=== PATIENT | male | born 1930 | race Caucasian/White ===

== ENCOUNTER 2018-11-18 10:54 | Emergency (ER) | payer MEDICARE ==
[2018-11-18 11:07] VITALS: BP 135/75; PULSE 58; RESP 18; TEMP 98.2
[2018-11-18] MEDS ORDERED: KETOROLAC 60 MG/2 ML VIAL IVP STA (11:47)
--- NOTE | 2018-11-18 11:50 | ED ---
General Adult HPI - General Chief complaint: Fall Stated complaint: fall Time Seen by Provider: 11/18/18 11:00 Source: patient, EMS, RN notes reviewed Mode of arrival: EMS Limitations: no limitations - History of Present Illness Initial comments: This is an 88-year-old male who presents to the emergency department complaining of bilateral hip pain and some left thoracic pain. Patient states last night he felt the ground and twisted and was unable to get up so he sat there until this morning when he was able to get some help. Patient states he crawled over to a carpeted and spent the night there. Patient states he did not hit his head he did not have any neck pain. Patient denies chest pain. Patient denies any arm pain patient denies any lower extremity pain except for the hips. Patient denies any pelvic pain. - Related Data Home Medications Medication Instructions Recorded Confirmed Brimonidine Tartrate [Alphagan P 1 drop BOTH EYES BID 05/24/16 11/18/18 0.15% Ophth Soln] Latanoprost Ophth [Xalatan 0.005%] 1 drop LEFT EYE HS 05/24/16 11/18/18 Timolol 0.5% Ophth Gel Forming 1 drops LEFT EYE BID 05/24/16 11/18/18 [Timoptic-Xe 0.5% Gel Form] Triamterene-Hctz 37.5-25Mg 1 cap PO DAILY 05/24/16 11/18/18 [Dyazide 37.5-25 Capsule] Dabigatran [Pradaxa] 75 mg PO BID 11/18/18 11/18/18 Multivitamins, Thera [Multivitamin 1 tab PO DAILY 11/18/18 11/18/18 (formulary)] amLODIPine/ATORVASTATIN 1 tab PO DAILY 11/18/18 11/18/18 [amLODIPine/ATORVASTATIN 10-20 MG] glyBURIDE/METFORMIN HCL 1 tab PO BID 11/18/18 11/18/18 [Glucovance 5-500 mg] Allergies Allergy/AdvReac Type Severity Reaction Status Date / Time Penicillins Allergy Severe seizures Verified 11/18/18 11:13 Review of Systems ROS Statement: Those systems with pertinent positive or pertinent negative responses have been documented in the HPI. ROS Other: All systems not noted in ROS Statement are negative. Past Medical History Past Medical History: Diabetes Mellitus, Osteoarthritis (OA), Sleep Apnea/CPAP/BIPAP Additional Past Medical History / Comment(s): see Dr Valladares H&P, constipation, pre cancer skin "spots", varicose veins History of Any Multi-Drug Resistant Organisms: None Reported Past Surgical History: Appendectomy, Cholecystectomy, Joint Replacement, Orthopedic Surgery, Pacemaker Additional Past Surgical History / Comment(s): jean-paul cataracts, rt shoulder surgery,jean-paul bunionectomy, heel spur left foot, Past Anesthesia/Blood Transfusion Reactions: No Reported Reaction Past Psychological History: No Psychological Hx Reported Smoking Status: Former smoker Past Alcohol Use History: None Reported Past Drug Use History: None Reported - Past Family History Father Family Medical History: Cancer Mother Family Medical History: Cancer Sister(s) Family Medical History: Cancer General Exam - General Exam Comments Initial Comments: GENERAL: Patient is well-developed and well-nourished. Patient is nontoxic and well- hydrated and is in mild distress. ENT: Neck is soft and supple. No significant lymphadenopathy is noted. Oropharynx is clear. Moist mucous membranes. Neck has full range of motion without eliciting any pain. EYES: The sclera were anicteric and conjunctiva were pink and moist. Extraocular movements were intact and pupils were equal round and reactive to light. Eyelids were unremarkable. PULMONARY: Unlabored respirations. Good breath sounds bilaterally. No audible rales rhonchi or wheezing was noted. CARDIOVASCULAR: There is a regular rate and rhythm without any murmurs gallops or rubs. ABDOMEN: Soft and nontender with normal bowel sounds. No palpable organomegaly was noted. There is no palpable pulsatile mass. SKIN: Skin is clear with no lesions or rashes and otherwise unremarkable. NEUROLOGIC: Patient is alert and oriented x3. Cranial nerves II through XII are grossly intact. Motor and sensory are also intact. Normal speech, volume and content. Symmetrical smile. MUSCULOSKELETAL: Patient has bilateral lateral tenderness to both hips has full range of motion of the hips however it hurts actually rotate either of them. Patient has some tenderness just medial to the left scapula. No signs of trauma that area. Patient has no upper extremity pain or clavicle pain no chest wall pain LYMPHATICS: No significant lymphadenopathy is noted PSYCHIATRIC: Normal psychiatric evaluation. Limitations: no limitations Course Vital Signs 11/18/18 11:01 Temperature 98.2 F Pulse Rate 58 L Respiratory 18 Rate Blood Pressure 135/75 O2 Sat by Pulse 97 Oximetry Medical Decision Making - Medical Decision Making X-ray of the hips show no acute abnormality. Chest x-ray shows no acute abnormality. Patient was able to ambulate and stated that he was at his baseline as far as walking goes. Disposition Clinical Impression: Fall, Hip pain Disposition: HOME SELF-CARE Condition: Good Instructions (If sedation given, give patient instructions): Fall Prevention for Older Adults (ED) Is patient prescribed a controlled substance at d/c from ED?: No Referrals: Ervin Gomez MD [Primary Care Provider] - 1-2 days Time of Disposition: 13:50
--- NOTE | 2018-11-18 12:46 | XR ---
EXAMINATION TYPE: XR Hip Bilateral and AP pelvis DATE OF EXAM: 11/18/2018 COMPARISON: NONE HISTORY: Pelvic and bilateral hip pain after fall injury last night. TECHNIQUE: A single AP view of the pelvis is obtained. Two views of the bilateral hips are obtained. FINDINGS: Lucency from gas prominent rectum makes evaluation near pubic symphysis suboptimal. No defi nitive pelvic fracture is seen. Sacroiliac joints are maintained. Pubic symphysis is not suspiciously widened. Two views of bilateral hips show no acute fracture or dislocation. Mild to moderate axial joint space loss and acetabular spurring in both hips is seen. No focal lytic or sclerotic lesion seen in the pr oximal femurs bilaterally. Left-sided pelvic phleboliths are noted. IMPRESSION: There is no acute fracture or dislocation in the pelvis or either hip.
--- NOTE | 2018-11-18 12:47 | XR ---
EXAMINATION TYPE: XR chest 2V DATE OF EXAM: 11/18/2018 COMPARISON: Prior chest x-ray 05/29/2016 HISTORY: Difficulty breathing, pain, fall TECHNIQUE: Frontal and lateral views of the chest are obtained. FINDINGS: There is no focal air space opacity, pleural effusion, or pneumothorax seen. The cardiac silhouette size is stable and enlarged although may be accentuated by rotation. There is increased A P diameter chest with flattening the hemidiaphragms. Anterior osteophyte formation along the thoracic spine suggest diffuse idiopathic skeletal hyperostosis. Patient is rotated. Prominence of pulmonary artery could be due to pulmonary artery hypertension. There is pacemaker generator in the left pector al region, lead is present right ventricle. The osseous structures are intact. IMPRESSION: No acute cardiopulmonary process. Additional findings above.
== END 2018-11-18 14:02 | disposition home or self-care (01) ==
LOC: EC 10:54
DX: M25.551 Pain in right hip (principal); M25.552 Pain in left hip; M54.6 Pain in thoracic spine; E11.9 Type 2 diabetes mellitus without complications; M19.90 Unspecified osteoarthritis, unspecified site; G47.30 Sleep apnea, unspecified; Z96.698 Presence of other orthopedic joint implants; Z95.0 Presence of cardiac pacemaker; Z87.891 Personal history of nicotine dependence; Z79.84 Long term (current) use of oral hypoglycemic drugs; Z79.899 Other long term (current) drug therapy; Z88.0 Allergy status to penicillin; X50.1XXA Overexertion from prolonged static or awkward postures, initial encounter
CPT/HCPCS: 73521; 71046; 99283; 96374; J1885

== ENCOUNTER 2018-12-20 08:13 | Inpatient (IN) | payer MEDICARE ==
[2018-12-20] MEDS ORDERED: SODIUM CHLORIDE 0.9% 500 ML 500 ML IV STA (08:35)
[2018-12-20] MEDS ORDERED: MORPHINE SULFATE 2 MG/ML SYRINGE IVP STA (08:35)
[2018-12-20] MEDS ORDERED: ONDANSETRON 4 MG/2 ML VIAL IVP STA (08:35)
--- NOTE | 2018-12-20 08:43 | ED ---
General Adult HPI - General Source: patient, family Mode of arrival: wheelchair Limitations: no limitations <Kendra Smallwood - Last Filed: 12/20/18 10:00> <Davi Medrano - Last Filed: 12/20/18 10:13> - General Chief complaint: Abdominal Pain Stated complaint: constipation Time Seen by Provider: 12/20/18 08:22 - History of Present Illness Initial comments: 88-year-old male patient presents to the emergency department today for evaluation of rectal bleeding, urinary retention, and constipation. Patient states that his last bowel movement was 2-3 days ago. Patient states he has the urge to defecate however is unable to pass stool. Patient states that he has been having some bright red rectal bleeding over the last 24 hours. States that the bleeding is becoming heavier. States he is having rectal pain with this. Patient states he is also having urinary retention. States he last urinated yesterday. He denies any nausea or vomiting. States he does feel a lot of lower abdominal pressure. Patient has had cholecystectomy and appendectomy in the past. States he does have a history of hemorrhoids. Heh does take Pradaxa. He has been taking MiraLAX without relief. Denies any other stool softeners, laxatives, or enemas. Patient denies any recent rash, fever, chills, shortness breath, chest pain, back pain, numbness, tingling, dizziness, weakness, hematuria, dysuria, urinary urgency, urinary frequency, headache, visual changes, or any other complaints. (Kendra Smallwood) - Related Data Home Medications Medication Instructions Recorded Confirmed Brimonidine Tartrate [Alphagan P 1 drop BOTH EYES BID 05/24/16 12/20/18 0.15% Ophth Soln] Timolol 0.5% Ophth Gel Forming 1 drops LEFT EYE DAILY 05/24/16 12/20/18 [Timoptic-Xe 0.5% Gel Form] Triamterene-Hctz 37.5-25Mg 1 cap PO DAILY 05/24/16 12/20/18 [Dyazide 37.5-25 Capsule] Dabigatran [Pradaxa] 75 mg PO BID 11/18/18 12/20/18 amLODIPine/ATORVASTATIN 1 tab PO DAILY 11/18/18 12/20/18 [amLODIPine/ATORVASTATIN 10-20 MG] glyBURIDE/METFORMIN HCL 1 tab PO BID 11/18/18 12/20/18 [Glucovance 5-500 mg] Allergies Allergy/AdvReac Type Severity Reaction Status Date / Time Penicillins AdvReac Severe seizures Verified 12/20/18 09:12 Review of Systems ROS Other: All systems not noted in ROS Statement are negative. <Kendra Smallwood - Last Filed: 12/20/18 10:00> ROS Other: All systems not noted in ROS Statement are negative. <Davi Medrano - Last Filed: 12/20/18 10:13> ROS Statement: Those systems with pertinent positive or pertinent negative responses have been documented in the HPI. Past Medical History Past Medical History: Diabetes Mellitus, Osteoarthritis (OA), Sleep Apnea/CPAP/BIPAP Additional Past Medical History / Comment(s): see Dr Valladares H&P, constipation, pre cancer skin "spots", varicose veins History of Any Multi-Drug Resistant Organisms: None Reported Past Surgical History: Appendectomy, Cholecystectomy, Joint Replacement, Orthopedic Surgery, Pacemaker Additional Past Surgical History / Comment(s): jean-paul cataracts, rt shoulder surgery,jean-paul bunionectomy, heel spur left foot, Past Anesthesia/Blood Transfusion Reactions: No Reported Reaction Past Psychological History: No Psychological Hx Reported Smoking Status: Former smoker Past Alcohol Use History: None Reported Past Drug Use History: None Reported - Past Family History Father Family Medical History: Cancer Mother Family Medical History: Cancer Sister(s) Family Medical History: Cancer <Kendra Smallwood - Last Filed: 12/20/18 10:00> General Exam Limitations: no limitations General appearance: alert, in no apparent distress, other (Physical well- developed, well-nourished elderly male patient in no acute distress. Vital signs upon presentation are temperature 97.2F, pulse 67, respirations 18, blood pressure 159/84, pulse ox 96% on room air.) Eye exam: Present: normal appearance, PERRL, EOMI. Absent: scleral icterus, conjunctival injection, periorbital swelling ENT exam: Present: normal exam, normal oropharynx, mucous membranes moist Respiratory exam: Present: normal lung sounds bilaterally. Absent: respiratory distress, wheezes, rales, rhonchi, stridor Cardiovascular Exam: Present: regular rate, normal rhythm, normal heart sounds. Absent: systolic murmur, diastolic murmur, rubs, gallop, clicks GI/Abdominal exam: Present: soft, tenderness (Suprapubic tenderness), normal bowel sounds. Absent: distended, guarding, rebound, rigid Rectal exam: Present: bloody stool, tenderness. Absent: hemorrhoids Neurological exam: Present: alert, oriented X3, CN II-XII intact Psychiatric exam: Present: normal affect, normal mood Skin exam: Present: warm, dry, intact, normal color. Absent: rash <Kendra Smallwood - Last Filed: 12/20/18 10:00> Course <Davi Medrano - Last Filed: 12/20/18 10:13> Vital Signs 12/20/18 12/20/18 08:16 09:11 Temperature 97.2 F L Pulse Rate 67 57 L Respiratory 18 18 Rate Blood Pressure 159/84 132/74 O2 Sat by Pulse 96 96 Oximetry - Reevaluation(s) Reevaluation #1: 12/20/18 10:13NP supervision: I proceeded [id number] evaluation patient did discuss the findings with him. He does demonstrate evidence of GI bleed with burgundy colored stools. Hemoglobin is within normal limits this time he will be admitted for monitoring and evaluation by GI. I do agree with the assessment and plan (Davi Medrano) EKG Findings - EKG Comments: EKG Findings:: EKG obtained at 0910 shows demand pacemaker. Ventricular rate is 53, QRS duration 86, QTC 418, QTC 392. <Kendra Smallwood - Last Filed: 12/20/18 10:00> Medical Decision Making - Lab Data Result diagrams: 12/20/18 08:55 12/20/18 08:55 - Radiology Data Radiology results: report reviewed, image reviewed <Kendra Smallwood - Last Filed: 12/20/18 10:00> - Lab Data Result diagrams: 12/20/18 08:55 12/20/18 08:55 <Davi Medrano - Last Filed: 12/20/18 10:13> - Medical Decision Making 88-year-old male patient presented to the emergency department today for evaluation of constipation, urinary retention, GI bleed. Physical examination did reveal suprapubic abdominal pressure and tenderness. Lungs are clear to auscultation with good air movement. Heart sounds normal. Rectal exam was performed and revealed some mild rectal tenderness. There is presence of maroon stool, obvious bleeding. No hemorrhoids were noted externally. Blood pressure is stable. X-ray shows overall nonobstructive bowel gas pattern. There is fecal material seen but no evidence of severe constipation. We did do a straight cath, this did relieve bladder pressure. Patient is given some pain medication which did improve his symptoms significantly. By attending Dr. Medrano did discuss the case with the on-call physician Dr. Delgado agrees to admission. We'll consult GI. I did discuss findings and results with the patient. He is agreeable with the plan. (Kendra Smallwood) - Lab Data Lab Results 12/20/18 12/20/18 12/20/18 Range/Units 08:55 08:55 08:55 WBC 9.2 (3.8-10.6) k/uL RBC 4.79 (4.30-5.90) m/uL Hgb 15.1 (13.0-17.5) gm/dL Hct 44.3 (39.0-53.0) % MCV 92.4 (80.0-100.0) fL MCH 31.5 (25.0-35.0) pg MCHC 34.1 (31.0-37.0) g/dL RDW 14.5 (11.5-15.5) % Plt Count 112 L (150-450) k/uL Neutrophils % 71 % Lymphocytes % 19 % Monocytes % 6 % Eosinophils % 3 % Basophils % 1 % Neutrophils # 6.5 (1.3-7.7) k/uL Lymphocytes # 1.7 (1.0-4.8) k/uL Monocytes # 0.5 (0-1.0) k/uL Eosinophils # 0.3 (0-0.7) k/uL Basophils # 0.1 (0-0.2) k/uL PT 11.2 (9.0-12.0) sec INR 1.1 (<1.2) APTT 30.9 H (22.0-30.0) sec Sodium 140 (137-145) mmol/L Potassium 3.9 (3.5-5.1) mmol/L Chloride 106 (98-107) mmol/L Carbon Dioxide 24 (22-30) mmol/L Anion Gap 10 mmol/L BUN 16 (9-20) mg/dL Creatinine 0.82 (0.66-1.25) mg/dL Est GFR (CKD-EPI)AfAm >90 (>60 ml/min/1.73 sqM) Est GFR (CKD-EPI)NonAf 80 (>60 ml/min/1.73 sqM) Glucose 139 H (74-99) mg/dL Calcium 9.5 (8.4-10.2) mg/dL Total Bilirubin 1.5 H (0.2-1.3) mg/dL AST 18 (17-59) U/L ALT 22 (21-72) U/L Alkaline Phosphatase 79 (38-126) U/L Total Protein 6.3 (6.3-8.2) g/dL Albumin 3.9 (3.5-5.0) g/dL Amylase 52 (30-110) U/L Lipase 64 (23-300) U/L - Radiology Data KUB x-ray of the abdomen is obtained. Report reviewed in its entirety. Impression by Dr. Villafana shows overall mild obstructive bowel gas pattern. (Kendra Smallwood) Disposition Decision to Admit Reason: Admit from EC Decision Date: 12/20/18 Decision Time: 10:07 <Kendra Smallwood - Last Filed: 12/20/18 10:00> <Davi Medrano - Last Filed: 12/20/18 10:13> Clinical Impression: GI bleed, Urinary retention Disposition: ADMITTED IP TO THIS [facility] Condition: Serious Referrals: Ervin Gomez MD [Primary Care Provider] - 1-2 days
[2018-12-20 09:20] LABS: Basophils # (A) 0.1 k/uL (0-0.2); Basophils % (A) 1 %; Eosinophils # (A) 0.3 k/uL (0-0.7); Eosinophils % (A) 3 %; HCT 44.3 % (39.0-53.0); HGB 15.1 gm/dL (13.0-17.5); Lymphocytes # (A) 1.7 k/uL (1.0-4.8); Lymphocytes % (A) 19 %; MCH 31.5 pg (25.0-35.0); MCHC 34.1 g/dL (31.0-37.0); MCV 92.4 fL (80.0-100.0); Mean Platelet Volume 8.1; Monocytes # (A) 0.5 k/uL (0-1.0); Monocytes % (A) 6 %; Neutrophils # (A) 6.5 k/uL (1.3-7.7); Neutrophils % (A) 71 %; Platelet Count 112 k/uL (150-450); RBC 4.79 m/uL (4.30-5.90); RDW 14.5 % (11.5-15.5); WBC 9.2 k/uL (3.8-10.6)
[2018-12-20 09:33] LABS: ALT 22 U/L (21-72); AST 18 U/L (17-59); African American GFR (CKD) >90 (>60 ml/min/1.73 sqM); Albumin 3.9 g/dL (3.5-5.0); Alkaline Phosphatase 79 U/L (38-126); Amylase 52 U/L (30-110); Anion Gap 10 mmol/L; Blood Urea Nitrogen 16 mg/dL (9-20); Calcium 9.5 mg/dL (8.4-10.2); Carbon Dioxide 24 mmol/L (22-30); Chloride 106 mmol/L (98-107); Glucose 139 mg/dL (74-99); Lipase 64 U/L (23-300); Potassium 3.9 mmol/L (3.5-5.1); Sodium 140 mmol/L (137-145); Total Bilirubin 1.5 mg/dL (0.2-1.3); Total Protein 6.3 g/dL (6.3-8.2)
--- NOTE | 2018-12-20 09:44 | XR ---
EXAMINATION TYPE: XR KUB DATE OF EXAM: 12/20/2018 9:41 AM CLINICAL HISTORY: Abdominal pain. TECHNIQUE: Two Upright KUB images of the abdomen are obtained. COMPARISON: None. FINDINGS: Scattered gas is seen in non-distended stomach and small bowel loops. Gas and fecal materia l is seen in non-distended colon. There is no visceromegaly, pneumoperitoneum, or abnormal calcificat ion appreciated. Underlying scoliosis is present. Vascular consultation of aorta is seen. Moderate na rrowing of both hip joints. Lung bases are clear. IMPRESSION: Overall nonobstructive bowel gas pattern.
[2018-12-20 09:47] LABS: INR 1.1 (<1.2); Partial Thromboplastin Time 30.9 sec (22.0-30.0); Prothrombin Time 11.2 sec (9.0-12.0)
[2018-12-20] MEDS ORDERED: NALOXONE 0.4 MG/ML 1 ML VIAL IV PRN (09:56)
[2018-12-20] MEDS ORDERED: ONDANSETRON 4 MG/2 ML VIAL IVP PRN (09:56)
[2018-12-20 10:18] LABS: Appearance,Urine Clear (Clear); Bilirubin,Urine Negative (Negative); Blood,Urine Negative (Negative); Color,Urine Yellow; Glucose,Urine (UA) Negative (Negative); Ketones,Urine Negative (Negative); Leukocyte Esterase,Urine Negative (Negative); Nitrite,Urine Negative (Negative); Protein,Urine Negative (Negative); Specific Gravity,Urine 1.014 (1.001-1.035)
[2018-12-20] MEDS: MORPHINE SULFATE 2 MG/ML SYRINGE IV PRN (14:00)
[2018-12-20 15:22] LABS: Basophils % (A) 1 %; Eosinophils # (A) 0.2 k/uL (0-0.7); Eosinophils % (A) 2 %; HCT 43.9 % (39.0-53.0); HGB 14.6 gm/dL (13.0-17.5); Lymphocytes # (A) 1.7 k/uL (1.0-4.8); Lymphocytes % (A) 20 %; MCH 30.8 pg (25.0-35.0); MCHC 33.2 g/dL (31.0-37.0); MCV 92.6 fL (80.0-100.0); Mean Platelet Volume 8.9; Monocytes # (A) 0.6 k/uL (0-1.0); Monocytes % (A) 7 %; Neutrophils # (A) 5.9 k/uL (1.3-7.7); Neutrophils % (A) 69 %; Platelet Count 103 k/uL (150-450); RBC 4.74 m/uL (4.30-5.90); RDW 15.9 % (11.5-15.5); WBC 8.6 k/uL (3.8-10.6)
[2018-12-20 16:51] LABS: Glucose,Whole Blood 111 mg/dL (75-99)
[2018-12-20 20:09] LABS: Glucose,Whole Blood 132 mg/dL (75-99)
[2018-12-20] MEDS: metFORMIN 500 MG TAB PO SCH (20:54)
[2018-12-20] MEDS: BRIMONIDINE TARTRATE 0.2% DROPS 5 ML BTL BOTH EYES SCH (20:54)
[2018-12-20] MEDS: TIMOLOL 0.5% OPHTH DROPS 5 ML BTL LEFT EYE SCH (20:54)
[2018-12-20] MEDS ORDERED: GLYBURIDE PO SCH (21:00)
[2018-12-20] MEDS ORDERED: METFORMIN HCL PO SCH (21:00)
[2018-12-20 21:20] LABS: Basophils % (A) 1 %; Eosinophils # (A) 0.2 k/uL (0-0.7); Eosinophils % (A) 3 %; HCT 42.4 % (39.0-53.0); HGB 14.3 gm/dL (13.0-17.5); Lymphocytes # (A) 2.1 k/uL (1.0-4.8); Lymphocytes % (A) 25 %; MCH 30.7 pg (25.0-35.0); MCHC 33.6 g/dL (31.0-37.0); MCV 91.4 fL (80.0-100.0); Mean Platelet Volume 9.1; Monocytes # (A) 0.6 k/uL (0-1.0); Monocytes % (A) 7 %; Neutrophils # (A) 5.5 k/uL (1.3-7.7); Neutrophils % (A) 63 %; Platelet Count 105 k/uL (150-450); RBC 4.64 m/uL (4.30-5.90); RDW 15.3 % (11.5-15.5); WBC 8.6 k/uL (3.8-10.6)
[2018-12-20] MEDS: glipiZIDE 5 MG TAB PO SCH (22:34)
--- NOTE | 2018-12-20 23:22 | P.HPIM ---
History of Present Illness H&P Date: 12/20/18 Chief Complaint: Bleeding per rectum History of presenting complaint: This is a very pleasant [address] Gomez. Chronic stable medical conditions include atrial fibrillation, diabetes, hypertension, osteoarthritis, varicose veins, permanent pacemaker. Patient presents with multitudinous symptoms. Patient for last 2 days not able to have a bowel movement. Also n oticed right shoulder red blood per rectum for 1 day. Patient also not able to make any urine for last 1 day. Patient does feel a suprapubic fullness and tenderness. No nausea vomiting. No fever or chills. Admitted through the ER. Review of systems: GEN.: None EYES: None HEENT: Decreased hearing NECK: None RESPIRATORY: None CARDIOVASCULAR: None GASTROINTESTINAL: As above GENITOURINARY: As above MUSCULOSKELETAL: None LYMPHATICS: None HEMATOLOGICAL: None PSYCHIATRY: None NEUROLOGICAL: None ( Past medical history: Atrial fibrillation, remote stroke, diabetes, hypertension, osteoarthritis, sleep apnea in the past on anymore, varicose veins Social history: Does not smoke or drink alcohol. Retired. Lives alone. Family history: Cancer Physical examination: VITAL SIGNS: 97.2, 67, 18, 159/84, 96% room air GENERAL: BMI 30.2, laying in bed, not in distress. EYES: Pupils equal. Conjunctiva normal. HEENT: External appearance of nose and ears normal, oral cavity grossly normal. NECK: JVD not raised; masses not palpable. HEART: First and second heart sounds are normal; no edema. LUNGS: Respiratory rate normal; clear to auscultation. ABDOMEN: Soft, some suprapubic tenderness, no guarding or rigidity liver spleen not palpable, no masses palpable. Rectal exam deferred. PSYCH: Alert and oriented x3; mood and affect normal. NEUROLOGICAL: Cranial nerves grossly intact; no facial asymmetry, power and sensation grossly intact. LYMPHATICS: No lymph nodes palpable in the axilla and neck Investigations, reviewed in the clinical context: White count 9.2 hemoglobin 15.1 potassium 3.9 creatinine 0.82 UA negative KUB-nonspecific EKG tracing personally reviewed by me shows underlying atrial fibrillation with a paced rhythm Assessment: -This is a patient presents with 2 days of no bowel movement. Also not able to urinate with urinary retention for 1 day. Also bright red blood per rectum 1 day. GI is consulted with a view to endoscopy. That'll be suspicion of a mass in the lower GI tract.. Patient be made nothing by mouth. -Persistent atrial fibrillation -Permanent pacemaker -Diabetes mellitus type 2 -Hypertension -Primary osteoarthritis -Plan: Home medications resumed. Patient will be made nothing by mouth. GI was consul colin. Care was discussed with the patient. We'll also BladderScan the patient. And do straight catheterization. Past Medical History Past Medical History: Atrial Fibrillation, CVA/TIA, Diabetes Mellitus, Hypertension, Osteoarthritis (OA), Pneumonia, Sleep Apnea/CPAP/BIPAP Additional Past Medical History / Comment(s): see Dr Valladares H&P, constipation, pre cancer skin "spots", varicose veins History of Any Multi-Drug Resistant Organisms: None Reported Past Surgical History: Appendectomy, Cholecystectomy, Joint Replacement, Orthopedic Surgery, Pacemaker Additional Past Surgical History / Comment(s): jean-paul cataracts, rt shoulder surgery,jean-paul bunionectomy, heel spur left foot, Deviated septum, hemmrhoidectomy Past Anesthesia/Blood Transfusion Reactions: No Reported Reaction Type of Cardiac Device: Permanent Pacemaker Device Placement Date:: 2016, on demand pacer set to go off if HR goes less than 50. Past Psychological History: No Psychological Hx Reported Smoking Status: Former smoker Past Alcohol Use History: None Reported Additional Past Alcohol Use History / Comment(s): quit smoking 1967, smoked for 4-5 yrs ,2 PPD Past Drug Use History: None Reported - Past Family History Father Family Medical History: Cancer Mother Family Medical History: Cancer Sister(s) Family Medical History: Cancer Medications and Allergies Home Medications Medication Instructions Recorded Confirmed Type Brimonidine Tartrate [Alphagan P 1 drop BOTH EYES BID 05/24/16 12/20/18 History 0.15% Ophth Soln] Timolol 0.5% Ophth Gel Forming 1 drops LEFT EYE DAILY 05/24/16 12/20/18 History [Timoptic-Xe 0.5% Gel Form] Triamterene-Hctz 37.5-25Mg 1 cap PO DAILY 05/24/16 12/20/18 History [Dyazide 37.5-25 Capsule] Dabigatran [Pradaxa] 75 mg PO BID 11/18/18 12/20/18 History amLODIPine/ATORVASTATIN 1 tab PO DAILY 11/18/18 12/20/18 History [amLODIPine/ATORVASTATIN 10-20 MG] glyBURIDE/METFORMIN HCL 1 tab PO BID 11/18/18 12/20/18 History [Glucovance 5-500 mg] Allergies Allergy/AdvReac Type Severity Reaction Status Date / Time Penicillins AdvReac Severe seizures Verified 12/20/18 09:12 Physical Exam Vitals: Vital Signs Temp Pulse Pulse Resp BP BP Pulse Ox 12/20/18 15:02 52 L 18 140/74 95 12/20/18 15:00 98 F 52 L 14 167/86 97 12/20/18 14:03 54 L 18 132/68 98 12/20/18 10:44 55 L 18 129/73 97 12/20/18 09:11 57 L 18 132/74 96 12/20/18 08:16 97.2 F L 67 18 159/84 96 Intake and Output 12/20/18 12/20/18 12/21/18 14:59 22:59 06:59 Intake Total 180 Output Total 850 700 Balance -850 -520 Intake: Oral 180 Output: Urine 850 700 Straight 850 700 Other: Voiding Method Toilet Urinal Weight 106.594 kg Results CBC & Chem 7: 12/20/18 20:45 12/20/18 08:55 Labs: Abnormal Lab Results - Last 24 Hours (Table) 12/20/18 12/20/18 12/20/18 Range/Units 08:55 08:55 08:55 RDW (11.5-15.5) % Plt Count 112 L (150-450) k/uL APTT 30.9 H (22.0-30.0) sec Glucose 139 H (74-99) mg/dL POC Glucose (mg/dL) (75-99) mg/dL Total Bilirubin 1.5 H (0.2-1.3) mg/dL 12/20/18 12/20/18 12/20/18 Range/Units 14:50 16:49 20:07 RDW 15.9 H (11.5-15.5) % Plt Count 103 L (150-450) k/uL APTT (22.0-30.0) sec Glucose (74-99) mg/dL POC Glucose (mg/dL) 111 H 132 H (75-99) mg/dL Total Bilirubin (0.2-1.3) mg/dL 12/20/18 Range/Units 20:45 RDW (11.5-15.5) % Plt Count 105 L (150-450) k/uL APTT (22.0-30.0) sec Glucose (74-99) mg/dL POC Glucose (mg/dL) (75-99) mg/dL Total Bilirubin (0.2-1.3) mg/dL Thrombosis Risk Factor Assmnt - Choose All That Apply Any of the Below Risk Factors Present?: Yes Each Factor Represents 1 point: Varicose veins Each Risk Factor Represents 2 Points: Malignancy Each Risk Factor Represents 3 Points: Age 75 years or older, History of DVT/PE Thrombosis Risk Factor Assessment Total Risk Factor Score: 9 Thrombosis Risk Factor Assessment Level: High Risk
[2018-12-21] MEDS: MORPHINE SULFATE 2 MG/ML SYRINGE IV PRN ×5 (01:08→23:57)
[2018-12-21 07:28] LABS: Glucose,Whole Blood 130 mg/dL (75-99)
[2018-12-21 07:32] LABS: Basophils # (A) 0.1 k/uL (0-0.2); Basophils % (A) 1 %; Eosinophils # (A) 0.2 k/uL (0-0.7); Eosinophils % (A) 2 %; HCT 44.5 % (39.0-53.0); HGB 14.6 gm/dL (13.0-17.5); Lymphocytes # (A) 1.8 k/uL (1.0-4.8); Lymphocytes % (A) 20 %; MCH 30.8 pg (25.0-35.0); MCHC 32.9 g/dL (31.0-37.0); MCV 93.7 fL (80.0-100.0); Mean Platelet Volume 8.2; Monocytes # (A) 0.5 k/uL (0-1.0); Monocytes % (A) 6 %; Neutrophils # (A) 6.2 k/uL (1.3-7.7); Neutrophils % (A) 70 %; Platelet Count 104 k/uL (150-450); RBC 4.75 m/uL (4.30-5.90); RDW 14.4 % (11.5-15.5); WBC 8.9 k/uL (3.8-10.6)
[2018-12-21] MEDS ORDERED: AMLODIPINE PO SCH (09:00)
[2018-12-21] MEDS ORDERED: ATORVASTATIN PO SCH (09:00)
[2018-12-21] MEDS: glipiZIDE 5 MG TAB PO SCH (10:15)
[2018-12-21] MEDS: metFORMIN 500 MG TAB PO SCH (10:15)
[2018-12-21] MEDS: TIMOLOL 0.5% OPHTH DROPS 5 ML BTL LEFT EYE SCH (10:15)
[2018-12-21] MEDS: amLODIPine 10 MG TAB PO SCH (10:15)
[2018-12-21] MEDS: ATORVASTATIN 20 MG TAB PO SCH (10:15)
[2018-12-21] MEDS: BRIMONIDINE TARTRATE 0.2% DROPS 5 ML BTL BOTH EYES SCH (10:16)
--- NOTE | 2018-12-21 10:16 | CONS ---
CONSULTATION DATE OF SERVICE: 12/21/2018. REFERRING PHYSICIAN: Dr. Delgado and Dr. Ervin Gomez REASON FOR CONSULTATION: Rectal bleeding. HISTORY OF PRESENT ILLNESS: The patient is a pleasant 88-year-old white male who came to the emergency room complaining of constipation and rectal bleeding for the last 2 days duration. The patient had a very hard bowel movement for 2 days and had to straighten strain his stool and subsequently noticed significant amount of bright red blood per rectum for the last 2 days. This morning, he still feels extremely constipated and had another bowel movement which was bloody and has lower abdominal discomfort with suprapubic pain. Also complains of difficulty micturition. He never had these symptoms in the past. Denies taking any new medications recently. He has history of atrial fibrillation and has been on Pradaxa, which has been on hold for the last 2 days. Hemoglobin remains stable. Last colonoscopy was more than 10 years ago. PAST MEDICAL HISTORY: Significant for atrial fibrillation and CVA in the past on Coumadin, history of diabetes mellitus, hypertension, hyperlipidemia, sleep apnea. PAST SURGICAL HISTORY: Cholecystectomy, appendectomy, knee replacement, bilateral cataract surgery, right surgery. MEDICATIONS: At home include Alphagan, Timoptic, Dyazide, Pradaxa, Glucovance, amlodipine, atorvastatin. ALLERGIES: PENICILLIN. SOCIAL HISTORY: No smoking or alcohol use. FAMILY HISTORY: Father had some kind of cancer and brother also had some kind of cancer. REVIEW OF SYSTEMS: Cardiopulmonary: No chest pain, shortness of breath. Genitourinary: No hematuria or dysuria. Musculoskeletal: Unremarkable. Skin unremarkable. Endocrine unremarkable. Psychiatric unremarkable. Neurology unremarkable. ENT/vision unremarkable. Constitutional: No recent weight loss. No fever, chills, night sweats. PHYSICAL EXAMINATION: Blood pressure is 150/78, pulse rate 50, temperature 98.2. HEENT examination unremarkable. Conjunctivae pink. Sclerae anicteric. Oral cavity no lesions. NECK: No JVD or lymph node enlargement. CHEST: Clear to auscultation. HEART: Regular rate and rhythm. ABDOMEN: Soft. It was nontender, nondistended. Suprapubic area had mild tenderness. EXTREMITIES: No pedal edema. SKIN no rashes. NEUROLOGIC: Alert and oriented x3. No focal deficits. LABS: From today, WBC 8.9, hemoglobin 14.6, platelets are 104. Basic metabolic panel is within normal limits. BUN and creatinine are 10 and 0.8 respectively. T-bilirubin 1.5. ALT, AST, and alkaline phosphatase are within normal limits. IMPRESSION: 1. Rectal bleeding/constipation for the last 2 days duration. Patient had significant amount of lower abdominal discomfort with rectal bleeding and clots for 2 days. Hemoglobin stable at 14.6 g/dL. Last colonoscopy was more than 10 years ago. 2. History of atrial fibrillation/cerebrovascular accident on Pradaxa, currently on hold, last dose was 2 days ago. RECOMMENDATIONS: 1. I had a lengthy discussion with the patient regarding workup of rectal bleeding. Since he is quite symptomatic and last colonoscopy was more than 10 years ago, I recommended a colonoscopy at this time and patient is agreeable to it. I discussed with him risks, benefits, and complications and he is also agreeable to it. 2. We will schedule for colonoscopy tomorrow. Thank you for this consultation. Please send a copy to Dr. Gomez. ANTONIO / RACH: [phone] /
[2018-12-21 11:57] LABS: Glucose,Whole Blood 175 mg/dL (75-99)
[2018-12-21] MEDS: TRIAMTERENE-HCTZ 37.5-25MG 1 EACH CAP PO SCH (15:31)
[2018-12-21] MEDS ORDERED: PEG 3350-NA SULF,BICARB,CL/KCL 4,000 ML BOTTLE PO ONE (17:00)
[2018-12-21 17:09] LABS: Glucose,Whole Blood 76 mg/dL (75-99)
--- NOTE | 2018-12-21 22:15 | P.PN ---
Progress Note - Text Progress Note Date: 12/21/18 Chief Complaint: Bleeding per rectum History of presenting complaint: This is a very pleasant [address] Gomez. Chronic stable medical conditions include atrial fibrillation, diabetes, hypertension, osteoarthritis, varicose veins, permanent pacemaker. Patient presents with multitudinous symptoms. Patient for last 2 days not able to have a bowel movement. Also noticed bright red blood per rectum for 1 day. Patient also not able to make any urine for last 1 day. Patient does feel a suprapubic fullness and tenderness. No nausea vomiting. No fever or chills. Admitted through the ER. Today-patient had some more dull blood per rectum. Majano catheter was placed. Large volume of urine was drained. Patient due for colonoscopy tomorrow. Daughter the bedside. Patient on clear liquids. Review of systems: Was done for constitutional, cardiovascular, GI, pulmonary. relevant finding as above Current medications reviewed that included: IV fluids Physical examination: VITAL SIGNS: 98.2, 54, 16, 144/74, 92% room air GENERAL: Laying in bed, awake but tired appearing EYES: Pupils equal. Conjunctiva normal. HEENT: External appearance of nose and ears normal, oral cavity grossly normal. NECK: JVD not raised; masses not palpable. HEART: First and second heart sounds are normal; no edema. LUNGS: Respiratory rate normal; clear to auscultation. ABDOMEN: Soft, some suprapubic tenderness, no guarding or rigidity liver spleen not palpable, no masses palpable. . Majano catheter in place PSYCH: Alert and oriented x3; mood and affect normal. Investigations, reviewed in the clinical context: White count 8.19: Hemoglobin 14.6 UA negative KUB-nonspecific EKG tracing personally reviewed by me shows underlying atrial fibrillation with a paced rhythm Assessment: -This is a patient presents with 2 days of no bowel movement. Also not able to urinate with urinary retention for 1 day. Also bright red blood per rectum 1 day. Lower GI bleed again today today. Pending endoscopy -Persistent atrial fibrillation -Permanent pacemaker -Diabetes mellitus type 2 -Hypertension -Primary osteoarthritis -Acute urinary retention now has a Majano catheter in place -Plan: Remains on clear liquids. H&H followed. 4 coloscopy tomorrow. Getting progression today. Care was discussed with the patient and her daughter the bedside. Follow hemodynamics closely
[2018-12-21 22:23] LABS: Glucose,Whole Blood 117 mg/dL (75-99)
[2018-12-22 00:30] LABS: Basophils # (A) 0.1 k/uL (0-0.2); Basophils % (A) 1 %; Eosinophils # (A) 0.3 k/uL (0-0.7); Eosinophils % (A) 2 %; HCT 47.7 % (39.0-53.0); HGB 15.1 gm/dL (13.0-17.5); Lymphocytes # (A) 2.5 k/uL (1.0-4.8); Lymphocytes % (A) 21 %; MCH 30.1 pg (25.0-35.0); MCHC 31.7 g/dL (31.0-37.0); MCV 94.7 fL (80.0-100.0); Mean Platelet Volume 8.4; Monocytes # (A) 0.7 k/uL (0-1.0); Monocytes % (A) 6 %; Neutrophils # (A) 8.4 k/uL (1.3-7.7); Neutrophils % (A) 69 %; Platelet Count 102 k/uL (150-450); RBC 5.04 m/uL (4.30-5.90); RDW 14.3 % (11.5-15.5); WBC 12.1 k/uL (3.8-10.6)
[2018-12-22] MEDS: glipiZIDE 5 MG TAB PO SCH ×4 (00:34→21:21)
[2018-12-22] MEDS: SODIUM CHLORIDE 0.9% 1,000 ML IV SCH ×3 (00:34→21:20)
[2018-12-22] MEDS: TIMOLOL 0.5% OPHTH DROPS 5 ML BTL LEFT EYE SCH ×3 (00:34→21:00)
[2018-12-22] MEDS: BRIMONIDINE TARTRATE 0.2% DROPS 5 ML BTL BOTH EYES SCH ×3 (00:34→21:00)
[2018-12-22] MEDS: metFORMIN 500 MG TAB PO SCH ×3 (00:34→21:02)
[2018-12-22] MEDS: MORPHINE SULFATE 2 MG/ML SYRINGE IV PRN ×4 (06:32→19:36)
[2018-12-22 07:12] LABS: Glucose,Whole Blood 109 mg/dL (75-99)
[2018-12-22 11:46] LABS: Glucose,Whole Blood 107 mg/dL (75-99)
[2018-12-22] MEDS ORDERED: PROPOFOL 10 MG/ML 20 ML VIAL IV ONE (16:41)
[2018-12-22] MEDS ORDERED: IV FLUID CONTINUATION 1,000 ML IV ONE (16:51)
[2018-12-22] MEDS ORDERED: LIDOCAINE 2% GEL 30 ML TUBE TOPICAL PRN (16:59)
--- NOTE | 2018-12-22 17:06 | P.PCN ---
Date of Procedure: 12/22/18 Description of Procedure: BRIEF HISTORY: A 8-year-old male who presented to the hospital with complaints of constipation and rectal bleeding for 2 days. The patient reports a very hard bowel movement and subsequently noticed bright red blood per rectum for 2 days. The patient continued to feel extremely constipated and complained of some lower abdominal discomfort. The patient does have a known history of atrial fibrillation and is on Pradaxa. Last colonoscopy was more than 10 years ago. PROCEDURE PERFORMED: Aborted Colonoscopy. PREOPERATIVE DIAGNOSIS: Blood per rectum. ESTIMATED BLOOD LOSS: Minimal. IV sedation per Anesthesia. PROCEDURE: After informed consent was obtained, the patient, was brought into the endoscopy unit. IV sedation was administered by Anesthesia under continuous monitoring. Digital rectal examination was normal. Initially the Olympus CF-100 flexible video colonoscope was then inserted in the rectum, where a large amount of solid and liquid stool was seen. Some superficial ulcerations in the rectum suggestive of stercoral ulcers were noted with some minimal bleeding from the site seen. Procedure had to be aborted due to the poor prep. The patient tolerated the procedure well. IMPRESSION: Stercoral ulcers. Poor prep. RECOMMENDATIONS: Findings of this examination were discussed with the patient and his daughter. Okay to resume diet. Patient was started on a bowel regimen of MiraLAX nightly to be titrated to bowel movements. He'll also receive a tapwater enema after arriving on the floor. Lidocaine gel has been ordered to be used prior to bowel movements to lubricate. Patient can follow-up after discharge if full colonoscopy is desired.
--- NOTE | 2018-12-22 18:20 | P.PN ---
Progress Note - Text Progress Note Date: 12/22/18 Chief Complaint: Bleeding per rectum Interval history: This is a very pleasant [address] Gomez. Chronic stable medical conditions include atrial fibrillation, diabetes, hypertension, osteoarthritis, varicose veins, permanent pacemaker. Patient presents with multitudinous symptoms. Patient for last 2 days not able to have a bowel movement. Also noticed bright red blood per rectum for 1 day. Patient also not able to make any urine for last 1 day. Patient does feel a suprapubic fullness and tenderness. No nausea vomiting. No fever or chills. Admitted through the ER. Today-'s the patient earlier today. Pending colonoscopy. Daughter is at the bedside. No new issues. Tired.. Review of systems: Was done for constitutional, cardiovascular, GI, pulmonary. relevant finding as above Active Medications Amlodipine Besylate (Norvasc) 10 mg PO DAILY [facility] Last Admin: 12/21/18 10:15 Dose: 10 mg Documented by: Atorvastatin Calcium (Lipitor) 20 mg PO DAILY [facility] Last Admin: 12/21/18 10:15 Dose: 20 mg Documented by: Brimonidine Tartrate (Alphagan P 0.2% Oph Soln) 1 drops BOTH EYES BID [facility] Last Admin: 12/22/18 07:46 Dose: 1 drops Documented by: Glipizide (Glucotrol) 5 mg PO BID [facility] Last Admin: 12/22/18 15:14 Dose: Not Given Documented by: Sodium Chloride (Saline 0.9%) 1,000 mls @ 100 mls/hr IV .Q10H [facility] Last Admin: 12/22/18 15:14 Dose: Not Given Documented by: Lidocaine HCl (Xylocaine Jelly 2%) 1 applic TOPICAL BID PRN PRN Reason: Bowel movement Stop: 12/24/18 17:00 Metformin HCl (Glucophage) 500 mg PO BID [facility] Last Admin: 12/22/18 15:14 Dose: Not Given Documented by: Morphine Sulfate (Morphine Sulfate (Inj)) 2 mg IV Q4HR PRN PRN Reason: Severe Pain Last Admin: 12/22/18 15:18 Dose: 2 mg Documented by: Naloxone HCl (Narcan) 0.2 mg IV Q2M PRN PRN Reason: Opioid Reversal Ondansetron HCl (Zofran) 4 mg IVP Q8HR PRN PRN Reason: Nausea And Vomiting Polyethylene Glycol (Miralax) 17 gm PO HS [facility] Timolol Maleate (Timoptic) 1 drops LEFT EYE BID [facility] Last Admin: 12/22/18 07:47 Dose: 1 drops Documented by: Triamterene/HCTZ (Dyazide) 1 each PO DAILY [facility] Last Admin: 12/21/18 15:31 Dose: 1 each Documented by: Physical examination: VITAL SIGNS: 98.2, 58, 18, 110/60, 93% room air GENERAL: Laying in bed, awake EYES: Pupils equal. Conjunctiva normal. HEENT: External appearance of nose and ears normal, oral cavity grossly normal. NECK: JVD not raised; masses not palpable. HEART: First and second heart sounds are normal; no edema. LUNGS: Respiratory rate normal; clear to auscultation. ABDOMEN: Soft, some suprapubic tenderness, no guarding or rigidity liver spleen not palpable, no masses palpable. . Majano catheter in place PSYCH: Alert and oriented x3; mood and affect normal. Investigations, reviewed in the clinical context: Hemoglobin 15.1 EKG tracing personally reviewed by me shows underlying atrial fibrillation with a paced rhythm Assessment: -This is a patient presents with 2 days of no bowel movement. . Also bright red blood per rectum 1 day. Lower GI bleed . Pending endoscopy -Persistent atrial fibrillation -Permanent pacemaker -Diabetes mellitus type 2 -Hypertension -Primary osteoarthritis -Acute urinary retention now has a Majano catheter in place -Plan: Hemoglobin remained stable. Pending colonoscopy. No new issues.
[2018-12-22] MEDS ORDERED: POLYETHYLENE GLYCOL 3350 17 GM POWD.PACK PO SCH (21:00)
[2018-12-22 21:19] LABS: Glucose,Whole Blood 120 mg/dL (75-99)
[2018-12-22] MEDS: amLODIPine 10 MG TAB PO SCH (23:05)
[2018-12-22] MEDS: ATORVASTATIN 20 MG TAB PO SCH (23:06)
[2018-12-22] MEDS: TRIAMTERENE-HCTZ 37.5-25MG 1 EACH CAP PO SCH (23:06)
[2018-12-23] MEDS: SODIUM CHLORIDE 0.9% 1,000 ML IV SCH ×2 (03:51→14:40)
[2018-12-23 07:39] LABS: Glucose,Whole Blood 92 mg/dL (75-99)
[2018-12-23] MEDS: TIMOLOL 0.5% OPHTH DROPS 5 ML BTL LEFT EYE SCH ×3 (08:52→21:22)
[2018-12-23] MEDS: TRIAMTERENE-HCTZ 37.5-25MG 1 EACH CAP PO SCH (08:53)
[2018-12-23] MEDS: ATORVASTATIN 20 MG TAB PO SCH (08:53)
[2018-12-23] MEDS: glipiZIDE 5 MG TAB PO SCH ×2 (08:53→21:07)
[2018-12-23] MEDS: amLODIPine 10 MG TAB PO SCH (08:53)
[2018-12-23] MEDS: BRIMONIDINE TARTRATE 0.2% DROPS 5 ML BTL BOTH EYES SCH ×2 (08:53→21:12)
[2018-12-23] MEDS: metFORMIN 500 MG TAB PO SCH ×2 (08:53→20:54)
[2018-12-23] MEDS: MORPHINE SULFATE 2 MG/ML SYRINGE IV PRN (09:02)
[2018-12-23 12:03] LABS: Glucose,Whole Blood 77 mg/dL (75-99)
[2018-12-23 16:48] LABS: Glucose,Whole Blood 96 mg/dL (75-99)
--- NOTE | 2018-12-23 17:07 | P.PN ---
Progress Note - Text Progress Note Date: 12/23/18 Chief Complaint: Bleeding per rectum Interval history: This is a very pleasant [address] Gomez. Chronic stable medical conditions include atrial fibrillation, diabetes, hypertension, osteoarthritis, varicose veins, permanent pacemaker. Patient presents with multitudinous symptoms. Patient for last 2 days not able to have a bowel movement. Also noticed bright red blood per rectum for 1 day. Patient also not able to make any urine for last 1 day. Patient does feel a suprapubic fullness and tenderness. No nausea vomiting. No fever or chills. Admitted through the ER. Today-' colonoscopy was done yesterday. Found to have stercorall ulcers, in the rectum bowel preparation was poor hence a good colonoscopy could not be done. Patient still having some bleeding through the rectum with bowel movements. Does get rectal irritation. Review of systems: Was done for constitutional, cardiovascular, GI, pulmonary. relevant finding as above Active Medications Amlodipine Besylate (Norvasc) 10 mg PO DAILY [facility] Last Admin: 12/23/18 08:53 Dose: 10 mg Documented by: Atorvastatin Calcium (Lipitor) 20 mg PO DAILY [facility] Last Admin: 12/23/18 08:53 Dose: 20 mg Documented by: Brimonidine Tartrate (Alphagan P 0.2% Oph Soln) 1 drops BOTH EYES BID [facility] Last Admin: 12/23/18 08:53 Dose: 1 drops Documented by: Glipizide (Glucotrol) 5 mg PO BID [facility] Last Admin: 12/23/18 08:53 Dose: 5 mg Documented by: Sodium Chloride (Saline 0.9%) 1,000 mls @ 100 mls/hr IV .Q10H [facility] Last Admin: 12/23/18 14:40 Dose: 100 mls/hr Documented by: Lidocaine HCl (Xylocaine Jelly 2%) 1 applic TOPICAL BID PRN PRN Reason: Bowel movement Stop: 12/24/18 17:00 Metformin HCl (Glucophage) 500 mg PO BID [facility] Last Admin: 12/23/18 08:53 Dose: 500 mg Documented by: Morphine Sulfate (Morphine Sulfate (Inj)) 2 mg IV Q4HR PRN PRN Reason: Severe Pain Last Admin: 12/23/18 09:02 Dose: 2 mg Documented by: Naloxone HCl (Narcan) 0.2 mg IV Q2M PRN PRN Reason: Opioid Reversal Ondansetron HCl (Zofran) 4 mg IVP Q8HR PRN PRN Reason: Nausea And Vomiting Psyllium Hydrophilic Mucilloid (Metamucil) 6 gm PO BID [facility] Timolol Maleate (Timoptic) 1 drops LEFT EYE BID [facility] Last Admin: 12/23/18 08:52 Dose: 1 drops Documented by: Triamterene/HCTZ (Dyazide) 1 each PO DAILY [facility] Last Admin: 12/23/18 08:53 Dose: 1 each Documented by: Physical examination: VITAL SIGNS: 98.6, 70, 18, 115/64, 95% room air GENERAL: Laying in bed, comfortable EYES: Pupils equal. Conjunctiva normal. HEENT: External appearance of nose and ears normal, oral cavity grossly normal. NECK: JVD not raised; masses not palpable. HEART: First and second heart sounds are normal; no edema. LUNGS: Respiratory rate normal; clear to auscultation. ABDOMEN: Soft, no guarding or rigidity liver spleen not palpable, no masses palpable. . Majano catheter in place PSYCH: Alert and oriented x3; mood and affect normal. Investigations, reviewed in the clinical context: Accu-Cheks 92, 77, 96 EKG tracing personally reviewed by me shows underlying atrial fibrillation with a paced rhythm Assessment: -Lower GI bleed from stercoral ulcers in the rectum, possibly from chronic constipation -Persistent atrial fibrillation -Permanent pacemaker -Diabetes mellitus type 2 -Hypertension -Primary osteoarthritis -Acute urinary retention now has a Majano catheter in place -Plan: Discussed with Dr. Stanton from GI. Patient to use Xylocaine Jelly prior to BM's and also bulk laxative has been added. Recheck hemoglobin in the morning. We'll also add Flomax in the evening and discontinue trial of the Majano cath in the morning
[2018-12-23] MEDS ORDERED: TAMSULOSIN 0.4 MG CAP.ER.24H PO SCH (18:30)
[2018-12-23 20:47] LABS: Glucose,Whole Blood 95 mg/dL (75-99)
[2018-12-23] MEDS: PSYLLIUM HUSK 100% 6 GM PACKET PO SCH (20:53)
[2018-12-24 02:22] VITALS: RESP 18
[2018-12-24 02:23] LABS: Glucose,Whole Blood 103 mg/dL (75-99)
[2018-12-24] MEDS: SODIUM CHLORIDE 0.9% 1,000 ML IV SCH ×2 (03:27→15:41)
[2018-12-24 07:26] LABS: Glucose,Whole Blood 133 mg/dL (75-99)
[2018-12-24 08:20] LABS: HCT 40.2 % (39.0-53.0); HGB 13.1 gm/dL (13.0-17.5); MCH 30.8 pg (25.0-35.0); MCHC 32.6 g/dL (31.0-37.0); MCV 94.4 fL (80.0-100.0); Mean Platelet Volume 8.4; Platelet Count 103 k/uL (150-450); RBC 4.25 m/uL (4.30-5.90); RDW 14.3 % (11.5-15.5); WBC 6.1 k/uL (3.8-10.6)
[2018-12-24] MEDS: amLODIPine 10 MG TAB PO SCH (08:59)
[2018-12-24] MEDS: ATORVASTATIN 20 MG TAB PO SCH (08:59)
[2018-12-24] MEDS: metFORMIN 500 MG TAB PO SCH (09:00)
[2018-12-24] MEDS: glipiZIDE 5 MG TAB PO SCH (09:00)
[2018-12-24] MEDS: TRIAMTERENE-HCTZ 37.5-25MG 1 EACH CAP PO SCH (09:11)
[2018-12-24] MEDS: TIMOLOL 0.5% OPHTH DROPS 5 ML BTL LEFT EYE SCH (09:11)
[2018-12-24] MEDS: PSYLLIUM HUSK 100% 6 GM PACKET PO SCH (09:11)
[2018-12-24] MEDS: BRIMONIDINE TARTRATE 0.2% DROPS 5 ML BTL BOTH EYES SCH (09:11)
[2018-12-24 11:31] LABS: Glucose,Whole Blood 145 mg/dL (75-99)
--- NOTE | 2018-12-24 13:11 | P.GSCN ---
<Mira Burr Maggy - Last Filed: 12/24/18 13:06> History of Present Illness Consult date: 12/24/18 Reason for Consult: rectal ulcerations Requesting physician: Giovanni Delgado History of present illness: CHIEF COMPLAINT: rectal ulceration HISTORY OF PRESENT ILLNESS: 88-year-old male who was admitted to the hospital secondary to constipation and rectal bleeding. Patient underwent colonoscopy yesterday revealing stercoral ulcers. Colonoscopy had to be aborted secondary to poor prep. General surgery was consulted for further evaluation. Patient examined at the bedside this morning. Patient denies abdominal pain. Denies nausea or vomiting. Tolerating diet. Patient reports having a bowel movement yesterday with minimal bright red blood. Denies bowel movement this morning.hemoglobin 13.1 this morning. PAST MEDICAL HISTORY: See list. PAST SURGICAL HISTORY: See list. SOCIAL HISTORY: No illicit drug use. REVIEW OF SYSTEMS: CONSTITUTIONAL: Denies fever or chills. HEENT: Denies blurred vision, vision changes, or eye pain. Denies hemoptysis CARDIOVASCULAR: Denies chest pain or pressure. RESPIRATORY: No shortness of breath. GASTROINTESTINAL: Refer to HPI for pertinent findings HEMATOLOGIC: Denies bleeding disorders. GENITOURINARY: Denies any blood in urine. SKIN: Denies pruitis. Denies rash. PHYSICAL EXAM: VITAL SIGNS: Reviewed. GENERAL: Well-developed in no acute distress. HEENT: No sclera icterus. Extraocular movements grossly intact. Moist buccal mucosa. Head is atraumatic, normocephalic. ABDOMEN: Soft. Nondistended. Nontender. NEUROLOGIC: Alert and oriented. Cranial nerves II through XII grossly intact. ASSESSMENT: 1. Constipation 2. Bright red blood per rectum 3. Stercoral ulcerations of rectum PLAN: 1. Continue to monitor hemoglobin 2. Continue conservative measures to avoid constipation. GI has ordered Miralax and lidocaine gel to be inserted prior to bowel movements for lubrication. 3. No surgical intervention recommended Nurse practitioner note has been reviewed by physician. Signing provider agrees with the documented findings, assessment, and plan of care. Past Medical History Past Medical History: Atrial Fibrillation, CVA/TIA, Diabetes Mellitus, Hypertension, Osteoarthritis (OA), Pneumonia, Sleep Apnea/CPAP/BIPAP Additional Past Medical History / Comment(s): see Dr Valladares H&P, constipation, pre cancer skin "spots", varicose veins History of Any Multi-Drug Resistant Organisms: None Reported Past Surgical History: Appendectomy, Cholecystectomy, Joint Replacement, Orthopedic Surgery, Pacemaker Additional Past Surgical History / Comment(s): jean-paul cataracts, rt shoulder surgery,jean-paul bunionectomy, heel spur left foot, Deviated septum, hemmrhoidectomy Past Anesthesia/Blood Transfusion Reactions: No Reported Reaction Type of Cardiac Device: Permanent Pacemaker Device Placement Date:: 2016, on demand pacer set to go off if HR goes less than 50. Past Psychological History: No Psychological Hx Reported Smoking Status: Former smoker Past Alcohol Use History: None Reported Additional Past Alcohol Use History / Comment(s): quit smoking 1967, smoked for 4-5 yrs ,2 PPD Past Drug Use History: None Reported - Past Family History Father Family Medical History: Cancer Mother Family Medical History: Cancer Sister(s) Family Medical History: Cancer Medications and Allergies Home Medications Medication Instructions Recorded Confirmed Type Brimonidine Tartrate [Alphagan P 1 drop BOTH EYES BID 05/24/16 12/20/18 History 0.15% Ophth Soln] Timolol 0.5% Ophth Gel Forming 1 drops LEFT EYE DAILY 05/24/16 12/20/18 History [Timoptic-Xe 0.5% Gel Form] Dabigatran [Pradaxa] 75 mg PO BID 11/18/18 12/20/18 History amLODIPine/ATORVASTATIN 1 tab PO DAILY 11/18/18 12/20/18 History [amLODIPine/ATORVASTATIN 10-20 MG] glyBURIDE/METFORMIN HCL 1 tab PO BID 11/18/18 12/20/18 History [Glucovance 5-500 mg] Lidocaine 2% Gel [Xylocaine Jelly 1 applic TOPICAL BID PRN #1 applic 12/24/18 Rx 2%] Psyllium Husk 100% [Metamucil 6 gm PO BID packet 12/24/18 Rx Packet] Tamsulosin [Flomax] 0.4 mg PO PC-SUPPER cap.er.24h 12/24/18 Rx Allergies Allergy/AdvReac Type Severity Reaction Status Date / Time Penicillins AdvReac Severe seizures Verified 12/20/18 09:12 Surgical - Exam Vital Signs Temp Pulse Resp BP Pulse Ox 97.2 F L 67 18 159/84 96 12/20/18 08:16 12/20/18 08:16 12/20/18 08:16 12/20/18 08:16 12/20/18 08:16 Results - Labs 12/24/18 07:54 12/20/18 08:55 Abnormal Lab Results - Last 24 Hours (Table) 12/24/18 12/24/18 12/24/18 Range/Units 02:12 07:01 07:54 RBC 4.25 L (4.30-5.90) m/uL Plt Count 103 L (150-450) k/uL POC Glucose (mg/dL) 103 H 133 H (75-99) mg/dL 12/24/18 Range/Units 11:19 RBC (4.30-5.90) m/uL Plt Count (150-450) k/uL POC Glucose (mg/dL) 145 H (75-99) mg/dL <Olaf Rodriguez - Last Filed: 12/24/18 18:26> History of Present Illness History of present illness: As above. Patient seen earlier this morning. No further rectal bleeding. Constipation seems to have resolved. No surgical intervention planned. Continue stool softeners. Follow-up as needed. Surgical - Exam Vital Signs Temp Pulse Resp BP Pulse Ox 97.2 F L 67 18 159/84 96 12/20/18 08:16 12/20/18 08:16 12/20/18 08:16 12/20/18 08:16 12/20/18 08:16 Results - Labs 12/24/18 07:54 12/20/18 08:55 Abnormal Lab Results - Last 24 Hours (Table) 12/24/18 12/24/18 12/24/18 Range/Units 02:12 07:01 07:54 RBC 4.25 L (4.30-5.90) m/uL Plt Count 103 L (150-450) k/uL POC Glucose (mg/dL) 103 H 133 H (75-99) mg/dL 12/24/18 Range/Units 11:19 RBC (4.30-5.90) m/uL Plt Count (150-450) k/uL POC Glucose (mg/dL) 145 H (75-99) mg/dL
--- NOTE | 2018-12-24 13:53 | P.DS ---
Providers Date of admission: 12/21/18 17:37 Expected date of discharge: 12/24/18 Attending physician: Giovanni Delgado Consults: 12/23/18 17:08 Consult Physician Routine Consulting Provider: Olaf Rodriguez Consult Reason/Comments: Rectal ulcer assess possibility of surgical stitches Do you want consulting provider notified?: Yes Primary care physician: Ervin Gomez [facility] Course: Hospital course: This is a very pleasant [address] Gomez. Chronic stable medical conditions include atrial fibrillation, diabetes, hypertension, osteoarthritis, varicose veins, permanent pacemaker. Patient presents with multitudinous symptoms. Patient for last 2 days not able to have a bowel movement. Also noticed bright red blood per rectum for 1 day. Patient also not able to make any urine for last 1 day. Patient does feel a suprapubic fullness and tenderness. No nausea vomiting. No fever or chills. Admitted through the ER. Patient did undergo colonoscope E. Due to poor bowel preparation full was visualization could not be done. Did discuss with Dr. Stanton from GI. No repeat coloscopy the present time. Bulk forming laxative was added and lidocaine jelly. Patient doing much better. Had a good bowel movement no further blood. Discussed with the patient daughter. Patient going to the rehab center. Discussed with the rehab center liaison. Discussion and discharge planning more than 35 minutes Consultation: Dr. Stanton from GI Dr. Thomas from general surgery Physical examination: VITAL SIGNS: 98, 89, 127/68, 98% room air GENERAL: Sitting up in a chair, comfortable EYES: Pupils equal. Conjunctiva normal. HEENT: External appearance of nose and ears normal, oral cavity grossly normal. NECK: JVD not raised; masses not palpable. HEART: First and second heart sounds are normal; no edema. LUNGS: Respiratory rate normal; clear to auscultation. ABDOMEN: Soft, no guarding or rigidity liver spleen not palpable, no masses palpable. . Majano catheter in place PSYCH: Alert and oriented x3; mood and affect normal. Investigations, reviewed in the clinical context: White count 6.1 hemoglobin 13.1 EKG tracing personally reviewed by me shows underlying atrial fibrillation with a paced rhythm Assessment: -Lower GI bleed from stercoral ulcers in the rectum, possibly from chronic constipation -Persistent atrial fibrillation -Permanent pacemaker -Diabetes mellitus type 2 -Hypertension -Primary osteoarthritis -Acute urinary retention from possibly BPH Disposition: [facility] Patient Condition at Discharge: Stable Plan - Discharge Summary Discharge Rx Participant: No New Discharge Prescriptions: No Action Timolol 0.5% Ophth Gel Forming [Timoptic-Xe 0.5% Gel Form] 1 drops LEFT EYE DAILY Brimonidine Tartrate [Alphagan P 0.15% Ophth Soln] 1 drop BOTH EYES BID Triamterene-Hctz 37.5-25Mg [Dyazide 37.5-25 Capsule] 1 cap PO DAILY Dabigatran [Pradaxa] 75 mg PO BID glyBURIDE/METFORMIN HCL [Glucovance 5-500 mg] 1 tab PO BID amLODIPine/ATORVASTATIN [amLODIPine/ATORVASTATIN 10-20 MG] 1 tab PO DAILY Discharge Medication List Brimonidine Tartrate [Alphagan P 0.15% Ophth Soln] 1 drop BOTH EYES BID 05/24/16 [History] Timolol 0.5% Ophth Gel Forming [Timoptic-Xe 0.5% Gel Form] 1 drops LEFT EYE DAILY 05/24/16 [History] Triamterene-Hctz 37.5-25Mg [Dyazide 37.5-25 Capsule] 1 cap PO DAILY 05/24/16 [History] Dabigatran [Pradaxa] 75 mg PO BID 11/18/18 [History] amLODIPine/ATORVASTATIN [amLODIPine/ATORVASTATIN 10-20 MG] 1 tab PO DAILY 11/18/18 [History] glyBURIDE/METFORMIN HCL [Glucovance 5-500 mg] 1 tab PO BID 11/18/18 [History] Follow up Appointment(s)/Referral(s): Ervin Gomez MD [Primary Care Provider] - 1-2 days [facility], [NON-STAFF] - 1 Week Activity/Diet/Wound Care/Special Instructions: [facility]
[2018-12-24 15:55] VITALS: BP 114/58; PULSE 52; TEMP 97.6
== END 2018-12-24 16:04 | DRG 394 ==
LOC: EC 08:13 → INTOOBSV 10:12 → 4SSUR 10:12 → OBSVTOIN 12-21 17:37
PROVIDERS: ADMIT Hospitalist; ATTEND Hospitalist
PROC: 0WJP8ZZ Inspection of Gastrointestinal Tract, Via Natural or Artificial Opening Endoscopic Approach (ICD-10-PCS; principal; 2018-12-22 08:30)
DX: K62.6 Ulcer of anus and rectum (principal); K92.2 Gastrointestinal hemorrhage, unspecified; I48.1 Persistent atrial fibrillation; E11.9 Type 2 diabetes mellitus without complications; E78.5 Hyperlipidemia, unspecified; G47.33 Obstructive sleep apnea (adult) (pediatric); I10 Essential (primary) hypertension; I83.90 Asymptomatic varicose veins of unspecified lower extremity; K59.00 Constipation, unspecified; M19.91 Primary osteoarthritis, unspecified site; R33.8 Other retention of urine; Z79.02 Long term (current) use of antithrombotics/antiplatelets; Z79.899 Other long term (current) drug therapy; Z90.49 Acquired absence of other specified parts of digestive tract; Z96.653 Presence of artificial knee joint, bilateral; Z87.891 Personal history of nicotine dependence; Z88.0 Allergy status to penicillin; Z98.42 Cataract extraction status, left eye; Z98.41 Cataract extraction status, right eye; Z96.1 Presence of intraocular lens; Z86.73 Personal history of transient ischemic attack (TIA), and cerebral infarction without residual deficits; Z95.0 Presence of cardiac pacemaker; Z80.9 Family history of malignant neoplasm, unspecified
CPT/HCPCS: 36415; 45378; 74018; 80053; 81003; 82150; 83690; 85025; 85027; 85610; 85730; 93005; 96361; 96374; 96375; 96376; 99285

== ENCOUNTER 2020-09-25 03:56 | Inpatient (IN) | payer MEDICARE ==
[2020-09-25 04:46] LABS: Anisocytosis Slight; HCT 34.7 % (39.0-53.0); HGB 12.5 gm/dL (13.0-17.5); MCH 35.1 pg (25.0-35.0); MCHC 35.9 g/dL (31.0-37.0); MCV 97.7 fL (80.0-100.0); Macrocytosis Slight; Mean Platelet Volume 8.5; RBC 3.55 m/uL (4.30-5.90); RDW 17.3 % (11.5-15.5)
[2020-09-25 04:55] LABS: Albumin 3.4 g/dL (3.5-5.0); Calcium 9.2 mg/dL (8.4-10.2); Potassium 4.1 mmol/L (3.5-5.1); Total Bilirubin 1.2 mg/dL (0.2-1.3); Total Protein 5.8 g/dL (6.3-8.2)
--- NOTE | 2020-09-25 04:57 | ED ---
GI Bleed HPI - General Chief complaint: GI Bleed Stated complaint: GI bleed Time Seen by Provider: 09/25/20 04:00 Source: patient, EMS Mode of arrival: EMS Limitations: no limitations - History of Present Illness Initial comments: Patient is an 89-year-old man who presents to have evaluation after he had passed some blood while attempting a bowel movement. The patient notes that he has been having constipation for a little over a week now. He had been taking stool softener. Patient was attempting to have bowel movement and then noted that when he went to [place] [facility] there was some dark red blood present. Patient denies any chest pain, abdominal pain, palpitations, lightheadedness or dyspnea. He does note that there is some perianal pain and it was painful to try and pass the hard stool he was having. MD complaint: blood streaked stool -: hour(s) Radiation: none Severity scale (1-10): 0 Quality: painless Improves with: none Worsens with: bowel movement Context: hemorrhoids Associated Symptoms: denies other symptoms - Related Data Home Medications Medication Instructions Recorded Confirmed amLODIPine/ATORVASTATIN 1 tab PO HS 11/18/18 09/25/20 [amLODIPine/ATORVASTATIN 10-20 MG] Apixaban [Eliquis] 2.5 mg PO BID 09/25/20 09/25/20 Brimonidine Tartrate [Alphagan P 1 drop BOTH EYES BID 09/25/20 09/25/20 0.2% Ophth Soln] Furosemide [Lasix] 20 mg PO DAILY 09/25/20 09/25/20 Latanoprost [Xalatan 0.005%] 1 drop LEFT EYE HS 09/25/20 09/25/20 Timolol 0.5% Ophth Soln [Timoptic 1 drop LEFT EYE DAILY 09/25/20 09/25/20 0.5% Ophth Soln] Previous Rx's Medication Instructions Recorded Hydrocortisone [Anusol-Hc] 1 applic RECTAL BID #1 gm 09/26/20 polyethylene glycoL 3350 [Miralax] 17 gm PO DAILY #30 powd.pack 09/26/20 Allergies Allergy/AdvReac Type Severity Reaction Status Date / Time Penicillins Allergy Severe Anaphylaxis Verified 09/25/20 09:25 Review of Systems ROS Statement: Those systems with pertinent positive or pertinent negative responses have been documented in the HPI. ROS Other: All systems not noted in ROS Statement are negative. Constitutional: Denies: fever Respiratory: Denies: cough, dyspnea Cardiovascular: Denies: chest pain, palpitations, edema Gastrointestinal: Reports: constipation. Denies: abdominal pain, nausea, vomiting, diarrhea, melena Genitourinary: Denies: dysuria, hematuria Musculoskeletal: Denies: back pain Skin: Denies: rash Neurological: Denies: headache, weakness Hematological/Lymphatic: Denies: easy bleeding Past Medical History Past Medical History: Atrial Fibrillation, CVA/TIA, Diabetes Mellitus, Hyp ertension, Osteoarthritis (OA), Pneumonia, Sleep Apnea/CPAP/BIPAP Additional Past Medical History / Comment(s): see Dr Valladares H&P, constipation, pre cancer skin "spots", varicose veins History of Any Multi-Drug Resistant Organisms: None Reported Past Surgical History: Appendectomy, Cholecystectomy, Joint Replacement, Ortho pedic Surgery, Pacemaker Additional Past Surgical History / Comment(s): jean-paul cataracts, rt shoulder surgery,jean-paul bunionectomy, heel spur left foot, Deviated septum, hemmrhoidectomy Past Anesthesia/Blood Transfusion Reactions: No Reported Reaction Type of Cardiac Device: Permanent Pacemaker Device Placement Date:: 2016, on demand pacer set to go off if HR goes less than 50. Past Psychological History: No Psychological Hx Reported Smoking Status: Former smoker Past Alcohol Use History: None Reported Past Drug Use History: None Reported - Past Family History Father Family Medical History: Cancer Mother Family Medical History: Cancer Sister(s) Family Medical History: Cancer General Exam Limitations: no limitations General appearance: alert, in no apparent distress Head exam: Present: atraumatic, normocephalic Eye exam: Present: normal appearance Respiratory exam: Present: normal lung sounds bilaterally. Absent: respiratory distress, wheezes, rales, rhonchi, stridor Cardiovascular Exam: Present: regular rate, irregular rhythm, normal heart sounds. Absent: systolic murmur, diastolic murmur, rubs, gallop GI/Abdominal exam: Present: soft. Absent: distended, tenderness, guarding, r ebound, rigid, mass Rectal exam: Present: fecal impaction, other. Absent: hemorrhoids, mass, tenderness Back exam: Present: normal inspection. Absent: CVA tenderness (R), CVA tenderness (L) Neurological exam: Present: alert Skin exam: Present: warm, dry, intact, normal color. Absent: rash Course Vital Signs 09/25/20 09/25/20 09/25/20 03:58 04:41 06:00 Temperature 98 F Pulse Rate 68 53 L 56 L Respiratory 16 17 16 Rate Blood Pressure 119/80 126/77 117/67 O2 Sat by Pulse 97 97 98 Oximetry 09/25/20 09/25/20 06:30 07:00 Temperature Pulse Rate 50 L 81 Respiratory 16 18 Rate Blood Pressure 117/65 140/83 O2 Sat by Pulse 98 98 Oximetry Medical Decision Making - Medical Decision Making Patient is an 89-year-old man here to have evaluation for GI bleeding. Patient's initial hemoglobin stable. Vital signs are stable. He does have some dark red blood in rectal vault on exam. Patient be admitted for serial hemoglobin and also to have GI evaluation. - Lab Data Result diagrams: 09/25/20 23:23 09/25/20 04:38 Lab Results 09/25/20 09/25/20 09/25/20 Range/Units 04:12 04:18 04:38 WBC 1.4 L* (3.8-10.6) k/uL RBC 3.55 L (4.30-5.90) m/uL Hgb 12.5 L (13.0-17.5) gm/dL Hct 34.7 L (39.0-53.0) % MCV 97.7 (80.0-100.0) fL MCH 35.1 H (25.0-35.0) pg MCHC 35.9 (31.0-37.0) g/dL RDW 17.3 H (11.5-15.5) % Plt Count 56 L (150-450) k/uL MPV 8.5 Neutrophils % % Neutrophils % (Manual) 29 % Band Neuts % (Manual) % Lymphocytes % % Lymphocytes % (Manual) 66 % Monocytes % % Monocytes % (Manual) 3 % Eosinophils % % Eosinophils % (Manual) 2 % Basophils % % Blast Cells % % Neutrophils # (1.3-7.7) k/uL Neutrophils # (Manual) 0.41 L* (1.3-7.7) k/uL Lymphocytes # (1.0-4.8) k/uL Lymphocytes # (Manual) 0.92 L (1.0-4.8) k/uL Monocytes # (0-1.0) k/uL Monocytes # (Manual) 0.04 (0-1.0) k/uL Eosinophils # (0-0.7) k/uL Eosinophils # (Manual) 0.03 (0-0.7) k/uL Basophils # (0-0.2) k/uL Blast Cells # (Man) (0) k/uL Nucleated RBCs 0 (0-0) /100 WBC Manual Slide Review Performed Pathologist Review Polychromasia Present Poikilocytosis Poikilocytosis (manual Present Anisocytosis Slight Anisocytosis (manual) Macrocytosis Slight Ovalocytes Retic Count (0.5-2.0) % PT (9.0-12.0) sec INR (<1.2) APTT (22.0-30.0) sec Fibrinogen (200-500) mg/dL Sodium (137-145) mmol/L Potassium (3.5-5.1) mmol/L Chloride (98-107) mmol/L Carbon Dioxide (22-30) mmol/L Anion Gap mmol/L BUN (9-20) mg/dL Creatinine (0.66-1.25) mg/dL Est GFR (CKD-EPI)AfAm (>60 ml/min/1.73 sqM) Est GFR (CKD-EPI)NonAf (>60 ml/min/1.73 sqM) Glucose (74-99) mg/dL POC Glucose (mg/dL) (75-99) mg/dL POC Glu Lcsw ID Plasma Lactic Acid Shaw (0.7-2.0) mmol/L Calcium (8.4-10.2) mg/dL Iron (65-175) ug/dL TIBC (228-460) ug/dL % Saturation (15.00-50.00) Ferritin (22.0-322.0) ng/mL Total Bilirubin (0.2-1.3) mg/dL AST (17-59) U/L ALT (4-49) U/L Alkaline Phosphatase (38-126) U/L Troponin I (0.000-0.034) ng/mL Total Protein (6.3-8.2) g/dL Total Protein (PEP) (6.2-8.2) g/dL Albumin (3.5-5.0) g/dL Vitamin B12 (200.0-944.0) pg/mL Folate ng/mL Urine Color Urine Appearance (Clear) Urine pH (5.0-8.0) Ur Specific [place] (1.001-1.035) Urine Protein (Negative) Urine Glucose (UA) (Negative) Urine Ketones (Negative) Urine Blood (Negative) Urine Nitrite (Negative) Urine Bilirubin (Negative) Urine Urobilinogen (<2.0) mg/dL Ur Leukocyte Esterase (Negative) Stool Occult Blood Negative (Negative) JESUS Screen (NEGATIVE) Coronavirus (PCR) (Not Detectd) Blood Type Blood Type Confirm O Positive Blood Type Recheck Bld Type Recheck Status Antibody Screen Spec Expiration Date 09/25/20 09/25/20 09/25/20 Range/Units 04:38 04:38 04:38 WBC (3.8-10.6) k/uL RBC (4.30-5.90) m/uL Hgb (13.0-17.5) gm/dL Hct (39.0-53.0) % MCV (80.0-100.0) fL MCH (25.0-35.0) pg MCHC (31.0-37.0) g/dL RDW (11.5-15.5) % Plt Count (150-450) k/uL MPV Neutrophils % % Neutrophils % (Manual) % Band Neuts % (Manual) % Lymphocytes % % Lymphocytes % (Manual) % Monocytes % % Monocytes % (Manual) % Eosinophils % % Eosinophils % (Manual) % Basophils % % Blast Cells % % Neutrophils # (1.3-7.7) k/uL Neutrophils # (Manual) (1.3-7.7) k/uL Lymphocytes # (1.0-4.8) k/uL Lymphocytes # (Manual) (1.0-4.8) k/uL Monocytes # (0-1.0) k/uL Monocytes # (Manual) (0-1.0) k/uL Eosinophils # (0-0.7) k/uL Eosinophils # (Manual) (0-0.7) k/uL Basophils # (0-0.2) k/uL Blast Cells # (Man) (0) k/uL Nucleated RBCs (0-0) /100 WBC Manual Slide Review Pathologist Review Polychromasia Poikilocytosis Poikilocytosis (manual Anisocytosis Anisocytosis (manual) Macrocytosis Ovalocytes Retic Count (0.5-2.0) % PT 10.7 (9.0-12.0) sec INR 1.0 (<1.2) APTT 21.7 L (22.0-30.0) sec Fibrinogen (200-500) mg/dL Sodium 136 L (137-145) mmol/L Potassium 4.1 (3.5-5.1) mmol/L Chloride 103 (98-107) mmol/L Carbon Dioxide 26 (22-30) mmol/L Anion Gap 7 mmol/L BUN 17 (9-20) mg/dL Creatinine 0.85 (0.66-1.25) mg/dL Est GFR (CKD-EPI)AfAm 89 (>60 ml/min/1.73 sqM) Est GFR (CKD-EPI)NonAf 77 (>60 ml/min/1.73 sqM) Glucose 155 H (74-99) mg/dL POC Glucose (mg/dL) (75-99) mg/dL POC Glu Lcsw ID Plasma Lactic Acid Shaw 1.6 (0.7-2.0) mmol/L Calcium 9.2 (8.4-10.2) mg/dL Iron (65-175) ug/dL TIBC (228-460) ug/dL % Saturation (15.00-50.00) Ferritin (22.0-322.0) ng/mL Total Bilirubin 1.2 (0.2-1.3) mg/dL AST 17 (17-59) U/L ALT 13 (4-49) U/L Alkaline Phosphatase 94 (38-126) U/L Troponin I (0.000-0.034) ng/mL Total Protein 5.8 L (6.3-8.2) g/dL Total Protein (PEP) (6.2-8.2) g/dL Albumin 3.4 L (3.5-5.0) g/dL Vitamin B12 (200.0-944.0) pg/mL Folate ng/mL Urine Color Urine Appearance (Clear) Urine pH (5.0-8.0) Ur Specific [place] (1.001-1.035) Urine Protein (Negative) Urine Glucose (UA) (Negative) Urine Ketones (Negative) Urine Blood (Negative) Urine Nitrite (Negative) Urine Bilirubin (Negative) Urine Urobilinogen (<2.0) mg/dL Ur Leukocyte Esterase (Negative) Stool Occult Blood (Negative) JESUS Screen (NEGATIVE) Coronavirus (PCR) (Not Detectd) Blood Type Blood Type Confirm Blood Type Recheck Bld Type Recheck Status Antibody Screen Spec Expiration Date 09/25/20 09/25/20 09/25/20 Range/Units 04:38 04:38 07:44 WBC (3.8-10.6) k/uL RBC (4.30-5.90) m/uL Hgb (13.0-17.5) gm/dL Hct (39.0-53.0) % MCV (80.0-100.0) fL MCH (25.0-35.0) pg MCHC (31.0-37.0) g/dL RDW (11.5-15.5) % Plt Count (150-450) k/uL MPV Neutrophils % % Neutrophils % (Manual) % Band Neuts % (Manual) % Lymphocytes % % Lymphocytes % (Manual) % Monocytes % % Monocytes % (Manual) % Eosinophils % % Eosinophils % (Manual) % Basophils % % Blast Cells % % Neutrophils # (1.3-7.7) k/uL Neutrophils # (Manual) (1.3-7.7) k/uL Lymphocytes # (1.0-4.8) k/uL Lymphocytes # (Manual) (1.0-4.8) k/uL Monocytes # (0-1.0) k/uL Monocytes # (Manual) (0-1.0) k/uL Eosinophils # (0-0.7) k/uL Eosinophils # (Manual) (0-0.7) k/uL Basophils # (0-0.2) k/uL Blast Cells # (Man) (0) k/uL Nucleated RBCs (0-0) /100 WBC Manual Slide Review Pathologist Review Polychromasia Poikilocytosis Poikilocytosis (manual Anisocytosis Anisocytosis (manual) Macrocytosis Ovalocytes Retic Count (0.5-2.0) % PT (9.0-12.0) sec INR (<1.2) APTT (22.0-30.0) sec Fibrinogen (200-500) mg/dL Sodium (137-145) mmol/L Potassium (3.5-5.1) mmol/L Chloride (98-107) mmol/L Carbon Dioxide (22-30) mmol/L Anion Gap mmol/L BUN (9-20) mg/dL Creatinine (0.66-1.25) mg/dL Est GFR (CKD-EPI)AfAm (>60 ml/min/1.73 sqM) Est GFR (CKD-EPI)NonAf (>60 ml/min/1.73 sqM) Glucose (74-99) mg/dL POC Glucose (mg/dL) (75-99) mg/dL POC Glu Lcsw ID Plasma Lactic Acid Shaw (0.7-2.0) mmol/L Calcium (8.4-10.2) mg/dL Iron (65-175) ug/dL TIBC (228-460) ug/dL % Saturation (15.00-50.00) Ferritin (22.0-322.0) ng/mL Total Bilirubin (0.2-1.3) mg/dL AST (17-59) U/L ALT (4-49) U/L Alkaline Phosphatase (38-126) U/L Troponin I <0.012 (0.000-0.034) ng/mL Total Protein (6.3-8.2) g/dL Total Protein (PEP) (6.2-8.2) g/dL Albumin (3.5-5.0) g/dL Vitamin B12 (200.0-944.0) pg/mL Folate ng/mL Urine Color Urine Appearance (Clear) Urine pH (5.0-8.0) Ur Specific [place] (1.001-1.035) Urine Protein (Negative) Urine Glucose (UA) (Negative) Urine Ketones (Negative) Urine Blood (Negative) Urine Nitrite (Negative) Urine Bilirubin (Negative) Urine Urobilinogen (<2.0) mg/dL Ur Leukocyte Esterase (Negative) Stool Occult Blood (Negative) JESUS Screen (NEGATIVE) Coronavirus (PCR) Not Detected (Not Detectd) Blood Type O Positive Blood Type Confirm Blood Type Recheck No Previous Record Bld Type Recheck Status CABO Indicated Antibody Screen NEGATIVE Spec Expiration Date 09/28/2020233709/25/20 09/25/20 09/25/20 Range/Units 09:02 11:29 16:19 WBC 1.5 L 1.5 L (3.8-10.6) k/uL RBC 3.38 L 3.29 L (4.30-5.90) m/uL Hgb 11.4 L 11.6 L (13.0-17.5) gm/dL Hct 34.3 L 32.7 L (39.0-53.0) % MCV 101.6 H 99.5 (80.0-100.0) fL MCH 33.9 35.3 H (25.0-35.0) pg MCHC 33.3 35.5 (31.0-37.0) g/dL RDW 18.2 H 17.5 H (11.5-15.5) % Plt Count 54 L 52 L (150-450) k/uL MPV 8.9 9.6 Neutrophils % 31 30 % Neutrophils % (Manual) 27 29 % Band Neuts % (Manual) 1 % Lymphocytes % 57 % Lymphocytes % (Manual) 70 63 % Monocytes % 3 2 % Monocytes % (Manual) 1 4 % Eosinophils % 1 1 % Eosinophils % (Manual) 2 3 % Basophils % 4 4 % Blast Cells % % Neutrophils # 0.5 L 0.4 L* (1.3-7.7) k/uL Neutrophils # (Manual) 0.41 L* 0.40 L* (1.3-7.7) k/uL Lymphocytes # 0.8 L 0.9 L (1.0-4.8) k/uL Lymphocytes # (Manual) 1.05 0.95 L (1.0-4.8) k/uL Monocytes # 0.0 0.0 (0-1.0) k/uL Monocytes # (Manual) 0.02 0.06 (0-1.0) k/uL Eosinophils # 0.0 0.0 (0-0.7) k/uL Eosinophils # (Manual) 0.03 0.05 (0-0.7) k/uL Basophils # 0.1 0.1 (0-0.2) k/uL Blast Cells # (Man) (0) k/uL Nucleated RBCs 0 0 (0-0) /100 WBC Manual Slide Review Performed Pathologist Review Polychromasia Present Poikilocytosis Poikilocytosis (manual Anisocytosis Slight Slight Anisocytosis (manual) Macrocytosis Moderate Slight Ovalocytes Retic Count (0.5-2.0) % PT (9.0-12.0) sec INR (<1.2) APTT (22.0-30.0) sec Fibrinogen (200-500) mg/dL Sodium (137-145) mmol/L Potassium (3.5-5.1) mmol/L Chloride (98-107) mmol/L Carbon Dioxide (22-30) mmol/L Anion Gap mmol/L BUN (9-20) mg/dL Creatinine (0.66-1.25) mg/dL Est GFR (CKD-EPI)AfAm (>60 ml/min/1.73 sqM) Est GFR (CKD-EPI)NonAf (>60 ml/min/1.73 sqM) Glucose (74-99) mg/dL POC Glucose (mg/dL) 139 H (75-99) mg/dL POC Glu Lcsw ID Marylu Barone Plasma Lactic Acid Shaw (0.7-2.0) mmol/L Calcium (8.4-10.2) mg/dL Iron (65-175) ug/dL TIBC (228-460) ug/dL % Saturation (15.00-50.00) Ferritin (22.0-322.0) ng/mL Total Bilirubin (0.2-1.3) mg/dL AST (17-59) U/L ALT (4-49) U/L Alkaline Phosphatase (38-126) U/L Troponin I (0.000-0.034) ng/mL Total Protein (6.3-8.2) g/dL Total Protein (PEP) (6.2-8.2) g/dL Albumin (3.5-5.0) g/dL Vitamin B12 (200.0-944.0) pg/mL Folate ng/mL Urine Color Urine Appearance (Clear) Urine pH (5.0-8.0) Ur Specific [place] (1.001-1.035) Urine Protein (Negative) Urine Glucose (UA) (Negative) Urine Ketones (Negative) Urine Blood (Negative) Urine Nitrite (Negative) Urine Bilirubin (Negative) Urine Urobilinogen (<2.0) mg/dL Ur Leukocyte Esterase (Negative) Stool Occult Blood (Negative) JESUS Screen (NEGATIVE) Coronavirus (PCR) (Not Detectd) Blood Type Blood Type Confirm Blood Type Recheck Bld Type Recheck Status Antibody Screen Spec Expiration Date 09/25/20 09/26/20 09/26/20 Range/Units 23:23 10:35 10:35 WBC 1.7 L (3.8-10.6) k/uL RBC 3.41 L (4.30-5.90) m/uL Hgb 11.6 L (13.0-17.5) gm/dL Hct 34.3 L (39.0-53.0) % MCV 100.8 H (80.0-100.0) fL MCH 34.2 (25.0-35.0) pg MCHC 33.9 (31.0-37.0) g/dL RDW 18.3 H (11.5-15.5) % Plt Count 55 L (150-450) k/uL MPV 9.2 Neutrophils % % Neutrophils % (Manual) 27 % Band Neuts % (Manual) 2 % Lymphocytes % % Lymphocytes % (Manual) 59 % Monocytes % % Monocytes % (Manual) 4 % Eosinophils % % Eosinophils % (Manual) Not Reportable % Basophils % % Blast Cells % 8 H* % Neutrophils # (1.3-7.7) k/uL Neutrophils # (Manual) 0.40 L* (1.3-7.7) k/uL Lymphocytes # (1.0-4.8) k/uL Lymphocytes # (Manual) 1.00 (1.0-4.8) k/uL Monocytes # (0-1.0) k/uL Monocytes # (Manual) 0.07 (0-1.0) k/uL Eosinophils # (0-0.7) k/uL Eosinophils # (Manual) 0.03 (0-0.7) k/uL Basophils # (0-0.2) k/uL Blast Cells # (Man) 0.14 H (0) k/uL Nucleated RBCs 0 (0-0) /100 WBC Manual Slide Review Performed Pathologist Review Polychromasia Poikilocytosis Slight Poikilocytosis (manual Present Anisocytosis Slight Anisocytosis (manual) Present Macrocytosis Moderate Ovalocytes Present Retic Count 2.1 H (0.5-2.0) % PT (9.0-12.0) sec INR (<1.2) APTT 19.7 L (22.0-30.0) sec Fibrinogen 453 (200-500) mg/dL Sodium (137-145) mmol/L Potassium (3.5-5.1) mmol/L Chloride (98-107) mmol/L Carbon Dioxide (22-30) mmol/L Anion Gap mmol/L BUN (9-20) mg/dL Creatinine (0.66-1.25) mg/dL Est GFR (CKD-EPI)AfAm (>60 ml/min/1.73 sqM) Est GFR (CKD-EPI)NonAf (>60 ml/min/1.73 sqM) Glucose (74-99) mg/dL POC Glucose (mg/dL) (75-99) mg/dL POC Glu Lcsw ID Plasma Lactic Acid [place] (0.7-2.0) mmol/L Calcium (8.4-10.2) mg/dL Iron (65-175) ug/dL TIBC (228-460) ug/dL % Saturation (15.00-50.00) Ferritin (22.0-322.0) ng/mL Total Bilirubin (0.2-1.3) mg/dL AST (17-59) U/L ALT (4-49) U/L Alkaline Phosphatase (38-126) U/L Troponin I (0.000-0.034) ng/mL Total Protein (6.3-8.2) g/dL Total Protein (PEP) (6.2-8.2) g/dL Albumin (3.5-5.0) g/dL Vitamin B12 (200.0-944.0) pg/mL Folate ng/mL Urine Color Urine Appearance (Clear) Urine pH (5.0-8.0) Ur Specific [place] (1.001-1.035) Urine Protein (Negative) Urine Glucose (UA) (Negative) Urine Ketones (Negative) Urine Blood (Negative) Urine Nitrite (Negative) Urine Bilirubin (Negative) Urine Urobilinogen (<2.0) mg/dL Ur Leukocyte Esterase (Negative) Stool Occult Blood (Negative) JESUS Screen (NEGATIVE) Coronavirus (PCR) (Not Detectd) Blood Type Blood Type Confirm Blood Type Recheck Bld Type Recheck Status Antibody Screen Spec Expiration Date 0409/26/20 09/26/20 Range/Units 10:35 10:35 11:02 WBC (3.8-10.6) k/uL RBC (4.30-5.90) m/uL Hgb (13.0-17.5) gm/dL Hct (39.0-53.0) % MCV (80.0-100.0) fL MCH (25.0-35.0) pg MCHC (31.0-37.0) g/dL RDW (11.5-15.5) % Plt Count (150-450) k/uL MPV Neutrophils % % Neutrophils % (Manual) % Band Neuts % (Manual) % Lymphocytes % % Lymphocytes % (Manual) % Monocytes % % Monocytes % (Manual) % Eosinophils % % Eosinophils % (Manual) % Basophils % % Blast Cells % % Neutrophils # (1.3-7.7) k/uL Neutrophils # (Manual) (1.3-7.7) k/uL Lymphocytes # (1.0-4.8) k/uL Lymphocytes # (Manual) (1.0-4.8) k/uL Monocytes # (0-1.0) k/uL Monocytes # (Manual) (0-1.0) k/uL Eosinophils # (0-0.7) k/uL Eosinophils # (Manual) (0-0.7) k/uL Basophils # (0-0.2) k/uL Blast Cells # (Man) (0) k/uL Nucleated RBCs (0-0) /100 WBC Manual Slide Review Pathologist Review Polychromasia Poikilocytosis Poikilocytosis (manual Anisocytosis Anisocytosis (manual) Macrocytosis Ovalocytes Retic Count (0.5-2.0) % PT (9.0-12.0) sec INR (<1.2) APTT (22.0-30.0) sec Fibrinogen (200-500) mg/dL Sodium (137-145) mmol/L Potassium (3.5-5.1) mmol/L Chloride (98-107) mmol/L Carbon Dioxide (22-30) mmol/L Anion Gap mmol/L BUN (9-20) mg/dL Creatinine (0.66-1.25) mg/dL Est GFR (CKD-EPI)AfAm (>60 ml/min/1.73 sqM) Est GFR (CKD-EPI)NonAf (>60 ml/min/1.73 sqM) Glucose (74-99) mg/dL POC Glucose (mg/dL) (75-99) mg/dL POC Glu Lcsw ID Plasma Lactic Acid [place] (0.7-2.0) mmol/L Calcium (8.4-10.2) mg/dL Iron 65 (65-175) ug/dL TIBC 211 L (228-460) ug/dL % Saturation 30.81 (15.00-50.00) Ferritin 658.4 H (22.0-322.0) ng/mL Total Bilirubin (0.2-1.3) mg/dL AST (17-59) U/L ALT (4-49) U/L Alkaline Phosphatase (38-126) U/L Troponin I (0.000-0.034) ng/mL Total Protein (6.3-8.2) g/dL Total Protein (PEP) 4.8 L (6.2-8.2) g/dL Albumin (3.5-5.0) g/dL Vitamin B12 184.0 L (200.0-944.0) pg/mL Folate 22.7 ng/mL Urine Color Yellow Urine Appearance Clear (Clear) Urine pH 7.5 (5.0-8.0) Ur Specific [place] 1.006 (1.001-1.035) Urine Protein Negative (Negative) Urine Glucose (UA) Negative (Negative) Urine Ketones Negative (Negative) Urine Blood Negative (Negative) Urine Nitrite Negative (Negative) Urine Bilirubin Negative (Negative) Urine Urobilinogen <2.0 (<2.0) mg/dL Ur Leukocyte Esterase Negative (Negative) Stool Occult Blood (Negative) JESUS Screen NEGATIVE (NEGATIVE) Coronavirus (PCR) (Not Detectd) Blood Type Blood Type Confirm Blood Type Recheck Bld Type Recheck Status Antibody Screen Spec Expiration Date 09/26/20 Range/Units 12:23 WBC (3.8-10.6) k/uL RBC (4.30-5.90) m/uL Hgb (13.0-17.5) gm/dL Hct (39.0-53.0) % MCV (80.0-100.0) fL MCH (25.0-35.0) pg MCHC (31.0-37.0) g/dL RDW (11.5-15.5) % Plt Count (150-450) k/uL MPV Neutrophils % % Neutrophils % (Manual) % Band Neuts % (Manual) % Lymphocytes % % Lymphocytes % (Manual) % Monocytes % % Monocytes % (Manual) % Eosinophils % % Eosinophils % (Manual) % Basophils % % Blast Cells % % Neutrophils # (1.3-7.7) k/uL Neutrophils # (Manual) (1.3-7.7) k/uL Lymphocytes # (1.0-4.8) k/uL Lymphocytes # (Manual) (1.0-4.8) k/uL Monocytes # (0-1.0) k/uL Monocytes # (Manual) (0-1.0) k/uL Eosinophils # (0-0.7) k/uL Eosinophils # (Manual) (0-0.7) k/uL Basophils # (0-0.2) k/uL Blast Cells # (Man) (0) k/uL Nucleated RBCs (0-0) /100 WBC Manual Slide Review Pathologist Review See comment A Polychromasia Poikilocytosis Poikilocytosis (manual Anisocytosis Anisocytosis (manual) Macrocytosis Ovalocytes Retic Count (0.5-2.0) % PT (9.0-12.0) sec INR (<1.2) APTT (22.0-30.0) sec Fibrinogen (200-500) mg/dL Sodium (137-145) mmol/L Potassium (3.5-5.1) mmol/L Chloride (98-107) mmol/L Carbon Dioxide (22-30) mmol/L Anion Gap mmol/L BUN (9-20) mg/dL Creatinine (0.66-1.25) mg/dL Est GFR (CKD-EPI)AfAm (>60 ml/min/1.73 sqM) Est GFR (CKD-EPI)NonAf (>60 ml/min/1.73 sqM) Glucose (74-99) mg/dL POC Glucose (mg/dL) (75-99) mg/dL POC Glu Lcsw ID Plasma Lactic Acid [place] (0.7-2.0) mmol/L Calcium (8.4-10.2) mg/dL Iron (65-175) ug/dL TIBC (228-460) ug/dL % Saturation (15.00-50.00) Ferritin (22.0-322.0) ng/mL Total Bilirubin (0.2-1.3) mg/dL AST (17-59) U/L ALT (4-49) U/L Alkaline Phosphatase (38-126) U/L Troponin I (0.000-0.034) ng/mL Total Protein (6.3-8.2) g/dL Total Protein (PEP) (6.2-8.2) g/dL Albumin (3.5-5.0) g/dL Vitamin B12 (200.0-944.0) pg/mL Folate ng/mL Urine Color Urine Appearance (Clear) Urine pH (5.0-8.0) Ur Specific [place] (1.001-1.035) Urine Protein (Negative) Urine Glucose (UA) (Negative) Urine Ketones (Negative) Urine Blood (Negative) Urine Nitrite (Negative) Urine Bilirubin (Negative) Urine Urobilinogen (<2.0) mg/dL Ur Leukocyte Esterase (Negative) Stool Occult Blood (Negative) JESUS Screen (NEGATIVE) Coronavirus (PCR) (Not Detectd) Blood Type Blood Type Confirm Blood Type Recheck Bld Type Recheck Status Antibody Screen Spec Expiration Date - EKG Data -: EKG Interpreted by Me EKG shows normal: axis (Normal), intervals (Normal), QRS complexes (Left anterior fascicular block), ST-T waves (Possible lateral ischemia.) Rate: normal (Rate 61 bpm) Interpretation: other (Underlying rhythm appears to be atrial fibrillation.) Disposition Clinical Impression: GI bleed Disposition: ADMITTED IP TO THIS HOSP Condition: Fair Is patient prescribed a controlled substance at d/c from ED?: No
[2020-09-25 05:03] LABS: Prothrombin Time 10.7 sec (9.0-12.0)
[2020-09-25 05:49] LABS: WBC 1.4 k/uL (3.8-10.6)
[2020-09-25] MEDS ORDERED: ACETAMINOPHEN TAB 325 MG TAB PO PRN (06:59)
[2020-09-25] MEDS ORDERED: NALOXONE 0.4 MG/ML 1 ML VIAL IV PRN (06:59)
[2020-09-25] MEDS: SODIUM CHLORIDE 0.9% 1,000 ML IV SCH (07:40)
[2020-09-25 08:27] LABS: Partial Thromboplastin Time 21.7 sec (22.0-30.0)
[2020-09-25 08:54] LABS: Neutrophils % (M) 29 %
[2020-09-25] MEDS ORDERED: PANTOPRAZOLE 40 MG/10 ML VIAL IV SCH (09:00)
[2020-09-25 09:03] LABS: Glucose,Whole Blood 139 mg/dL (75-99)
[2020-09-25 09:05] LABS: Eosinophils # (M) 0.03 k/uL (0-0.7); Lymphocytes # (M) 0.92 k/uL (1.0-4.8); Monocytes # (M) 0.04 k/uL (0-1.0); Neutrophils # (M) 0.41 k/uL (1.3-7.7); Nucleated Red Blood Cells 0 /100 WBC (0-0); Total Cells Counted 100
[2020-09-25 09:08] LABS: Poikilocytosis (M) Present
[2020-09-25 09:09] LABS: Polychromasia Present
[2020-09-25 09:10] LABS: Platelet Count 56 k/uL (150-450)
[2020-09-25 12:09] LABS: Anisocytosis Slight; Basophils # (A) 0.1 k/uL (0-0.2); Basophils % (A) 4 %; Eosinophils % (A) 1 %; HCT 34.3 % (39.0-53.0); HGB 11.4 gm/dL (13.0-17.5); Lymphocytes # (A) 0.8 k/uL (1.0-4.8); Lymphocytes % (A) 57 %; MCH 33.9 pg (25.0-35.0); MCHC 33.3 g/dL (31.0-37.0); MCV 101.6 fL (80.0-100.0); Macrocytosis Moderate; Mean Platelet Volume 8.9; Monocytes % (A) 3 %; Neutrophils # (A) 0.5 k/uL (1.3-7.7); Neutrophils % (A) 31 %; RBC 3.38 m/uL (4.30-5.90); RDW 18.2 % (11.5-15.5); WBC 1.5 k/uL (3.8-10.6)
[2020-09-25 12:22] LABS: Platelet Count 54 k/uL (150-450)
[2020-09-25] MEDS: FUROSEMIDE 20 MG TAB PO SCH (13:01)
[2020-09-25] MEDS: TIMOLOL 0.5% OPHTH DROPS 5 ML BTL LEFT EYE SCH (13:01)
--- NOTE | 2020-09-25 13:05 | CONS ---
CONSULTATION DATE OF SERVICE: September 25, 2020. REASON FOR CONSULTATION: Rectal bleeding. HISTORY OF PRESENT ILLNESS: The patient is an 89-year-old pleasant white male came to the emergency room after having several episodes of bright red blood per rectum. He was having some constipation and he took some stool softener and last night apparently he had several episodes of bright red blood per rectum and patient thought it was a significant amount and became concerned and came to the emergency room and subsequently admitted to the hospital for further evaluation. He has chronic constipation of several years duration. He usually takes [id number]-[id number] laxatives as needed. Sometimes he has bowel movements once a week. He denies any abdominal pain. He reports no nausea, vomiting. The patient has been on Eliquis and he believes he took the last dose yesterday morning. On review of his records, he did have an attempted colonoscopy by Dr. Dorado in December of 2018, but the procedure was aborted because of extremely poor prep. He was noted to have some ulcerations noted at that time. Prior colonoscopy was about 20 years ago. PAST MEDICAL HISTORY: Significant for hypertension, hyperlipidemia, diabetes mellitus, history of CVA in the past, atrial fibrillation, degenerative joint disease, and sleep apnea. PAST SURGICAL HISTORY: Stripping of varicose veins, cholecystectomy, appendectomy, bilateral cataract surgery, shoulder surgery, pacemaker implantation, deviated septum, hemorrhoidectomy. SOCIAL HISTORY: Former smoker. No alcohol use. FAMILY HISTORY: Father had some kind of cancer. Mother also had some kind of cancer. REVIEW OF SYSTEMS: CARDIOPULMONARY: No chest pain or shortness of breath. GENITOURINARY: No dysuria or hematuria. MUSCULOSKELETAL unremarkable. SKIN unremarkable. ENDOCRINE unremarkable. PSYCHIATRIC: Unremarkable. NEUROLOGY: He denies any symptoms. ENT: Vision unremarkable. GI: Severe constipation and as mentioned above. CONSTITUTIONAL: No recent weight loss. No fever, chills, night sweats. MEDICATIONS: Medications at home include: Amlodipine, atorvastatin, timolol, Xalatan, Lasix, Eliquis and Alphagan. ALLERGIES: PENICILLIN. PHYSICAL EXAMINATION: He appears comfortable. No apparent distress. Vital signs stable. Blood pressure 134/63, pulse rate 58, temperature 98.3. HEENT examination unremarkable. Conjunctivae pink. Sclerae anicteric. Oral cavity no lesions. NECK: No JVD or lymph node enlargement. CHEST was clear to auscultation. HEART: Regular rate and rhythm. ABDOMEN: Soft. Bowel sounds are positive. No organomegaly. EXTREMITIES: No pedal edema. NEUROLOGIC: Alert and oriented x3. No focal deficits. LABS: WBC 1.4, hemoglobin 12.5, platelets 56,000. PTT, INR are within normal limits. ALT, AST, T-bilirubin and alkaline phosphatase are within normal limits. Albumin is 3.4. Rodriguez virus PCR is negative. IMPRESSION: 1. This is a patient with chronic constipation of several years duration who presented to the hospital with multiple episodes of bright red blood per rectum that started around midnight. He states that he was constipated for a week and took some laxatives and started having several bowel movements with bright red blood per rectum. His hemoglobin is 12.7 g/dL. The patient is on Eliquis which is currently on hold. His last colonoscopy to his recollection was about 15 years ago. He did have an attempted colonoscopy by Dr. Dorado in December of 2018, but the procedure was not completed because of extremely poor prep. 2. History of atrial fibrillation on Eliquis which is currently on hold. 3. History of diabetes mellitus and hypertension. 4. Mild leukopenia and thrombocytopenia of unclear etiology. RECOMMENDATIONS: 1. Start him on a clear liquid diet. 2. Monitor CBC daily. 3. We will proceed with colonoscopy tomorrow. The patient understands risks, benefits and complications of the procedure. Thank you for this consultation. MMJOSELIN / RACH: [id number] /
[2020-09-25 14:27] LABS: Eosinophils # (M) 0.03 k/uL (0-0.7); Lymphocytes # (M) 1.05 k/uL (1.0-4.8); Monocytes # (M) 0.02 k/uL (0-1.0); Neutrophils # (M) 0.41 k/uL (1.3-7.7); Neutrophils % (M) 27 %; Nucleated Red Blood Cells 0 /100 WBC (0-0); Total Cells Counted 100
[2020-09-25] MEDS ORDERED: PEG 3350-NA SULF,BICARB,CL/KCL 4,000 ML BOTTLE PO ONE (16:00)
[2020-09-25 16:36] LABS: Anisocytosis Slight; Basophils # (A) 0.1 k/uL (0-0.2); Basophils % (A) 4 %; Eosinophils % (A) 1 %; HCT 32.7 % (39.0-53.0); HGB 11.6 gm/dL (13.0-17.5); Lymphocytes # (A) 0.9 k/uL (1.0-4.8); MCH 35.3 pg (25.0-35.0); MCHC 35.5 g/dL (31.0-37.0); MCV 99.5 fL (80.0-100.0); Macrocytosis Slight; Mean Platelet Volume 9.6; Monocytes % (A) 2 %; Neutrophils % (A) 30 %; RBC 3.29 m/uL (4.30-5.90); RDW 17.5 % (11.5-15.5); WBC 1.5 k/uL (3.8-10.6)
[2020-09-25 16:41] LABS: Neutrophils # (A) 0.4 k/uL (1.3-7.7); Platelet Count 52 k/uL (150-450)
[2020-09-25 18:00] LABS: Band Neutrophils % 1 %; Eosinophils # (M) 0.05 k/uL (0-0.7); Lymphocytes # (M) 0.95 k/uL (1.0-4.8); Monocytes # (M) 0.06 k/uL (0-1.0); Neutrophils % (M) 29 %; Nucleated Red Blood Cells 0 /100 WBC (0-0); Polychromasia Present; Total Cells Counted 100
[2020-09-25] MEDS: BRIMONIDINE TARTRATE 0.2% DROPS 5 ML BTL BOTH EYES SCH (20:46)
[2020-09-25] MEDS ORDERED: amLODIPine 10 MG TAB PO SCH (21:00)
[2020-09-25] MEDS ORDERED: ATORVASTATIN 20 MG TAB PO SCH (21:00)
[2020-09-25] MEDS ORDERED: LATANOPROST 0.005% OPHTH DROPS 2.5 ML BTL LEFT EYE SCH (21:00)
--- NOTE | 2020-09-25 23:32 | P.HPIM ---
History of Present Illness H&P Date: 09/25/20 Chief Complaint: Bright red blood per rectum History of presenting complaint: This is a very pleasant 89-year-old patient of Dr. Gomez. Chronic stable medical conditions include atrial fibrillation, diabetes, hypertension, osteoarthritis, varicose veins, permanent pacemaker. 2019 patient underwent a colonoscopy. Due to poor bowel preparation full visualization was not possible, patient now presents with bright red blood per rectum. Patient has got significant constipa tion. Normally has anywhere from 2-3 bowel movements a week. This time he was constipated for about a week. Had to bear himself down with hard stool. Notice bright red blood per rectum. When he is wiping himself. Denies any abdominal pain. No loss of appetite or weight. Appetite has been good otherwise. GI consulted. Review of systems: GEN.: Tired EYES: None HEENT: Decreased hearing NECK: None RESPIRATORY: None CARDIOVASCULAR: None GASTROINTESTINAL: As above GENITOURINARY: As above MUSCULOSKELETAL: None LYMPHATICS: None HEMATOLOGICAL: None PSYCHIATRY: None NEUROLOGICAL: None ( Past medical history: Atrial fibrillation, remote stroke, diabetes, hypertension, osteoarthritis, sleep apnea in the past , not anymore, varicose veins Social history: Does not smoke or drink alcohol. Retired. Lives alone. Uses a cane Family history: Cancer Physical examination: VITAL SIGNS: 98.3, 58, 16, 134 Bicitra 3, 98% room air GENERAL: BMI 29.5, laying in bed, awake EYES: Pupils equal. Conjunctiva normal. HEENT: External appearance of nose and ears normal, oral cavity grossly normal. NECK: JVD not raised; masses not palpable. HEART: First and second heart sounds are normal; no edema. LUNGS: Respiratory rate normal; clear to auscultation. ABDOMEN: Soft, no tenderness, no guarding or rigidity liver spleen not palpable, no masses palpable. PSYCH: Alert and oriented x3; mood and affect normal. NEUROLOGICAL: Cranial nerves grossly intact; no facial asymmetry, power and sensation grossly intact. LYMPHATICS: No lymph nodes palpable in the axilla and neck Investigations, reviewed in the clinical context: WBC 1.5 hemoglobin 11.6 platelets 52 potassium 4.1 creatinine 0.85 Coronavirus [PCR]-not detected EKG tracing personally reviewed by me-atrial fibrillation rate controlled Assessment and plan: -Acute bright red bleeding per rectum and the patient's was cut chronic constipation. On this occasion has not had a bowel wound for 7 days. Had a hard stool. This could be hemorrhoidal bleeding. Last attempt at colonoscopy in [address] Gamble was unsuccessful. Due to poor bowel preparation. GI consulted. -Pancytopenia, could be from marrow suppression or early myelofibrosis Consult hematology -Persistent atrial fibrillation, rate controlled Telemetry. Chronically on eliquis. Held for now -Permanent pacemaker -Hypertension Continue with antihypertensive. Keep a close eye on the blood pressure -Primary osteoarthritis Pain control, when necessary Consider GI, hematology. H&H. Discussed with the patient. Past Medical History Past Medical History: Atrial Fibrillation, CVA/TIA, Diabetes Mellitus, Hypertension, Osteoarthritis (OA), Pneumonia, Sleep Apnea/CPAP/BIPAP Additional Past Medical History / Comment(s): see Dr Valladares H&P, constipation, pre cancer skin "spots", varicose veins History of Any Multi-Drug Resistant Organisms: None Reported Past Surgical History: Appendectomy, Cholecystectomy, Joint Replacement, Orthopedic Surgery, Pacemaker Additional Past Surgical History / Comment(s): jean-paul cataracts, rt shoulder surgery,jean-paul bunionectomy, heel spur left foot, Deviated septum, hemmrhoidectomy Past Anesthesia/Blood Transfusion Reactions: No Reported Reaction Type of Cardiac Device: Permanent Pacemaker Device Placement Date:: 2016, on demand pacer set to go off if HR goes less than 50. Past Psychological History: No Psychological Hx Reported Smoking Status: Former smoker Past Alcohol Use History: None Reported Additional Past Alcohol Use History / Comment(s): quit smoking 1967, smoked for 4-5 yrs ,2 PPD Past Drug Use History: None Reported - Past Family History Father Family Medical History: Cancer Mother Family Medical History: Cancer Sister(s) Family Medical History: Cancer Medications and Allergies Home Medications Medication Instructions Recorded Confirmed Type amLODIPine/ATORVASTATIN 1 tab PO HS 11/18/18 09/25/20 History [amLODIPine/ATORVASTATIN 10-20 MG] Apixaban [Eliquis] 2.5 mg PO BID 09/25/20 09/25/20 History Brimonidine Tartrate [Alphagan P 1 drop BOTH EYES BID 09/25/20 09/25/20 History 0.2% Ophth Soln] Furosemide [Lasix] 20 mg PO DAILY 09/25/20 09/25/20 History Latanoprost [Xalatan 0.005%] 1 drop LEFT EYE HS 09/25/20 09/25/20 History Timolol 0.5% Ophth Soln [Timoptic 1 drop LEFT EYE DAILY 09/25/20 09/25/20 History 0.5% Ophth Soln] Allergies Allergy/AdvReac Type Severity Reaction Status Date / Time Penicillins Allergy Severe Anaphylaxis Verified 09/25/20 09:25 Physical Exam Vitals: Vital Signs Temp Pulse Pulse Resp BP BP Pulse Ox 09/25/20 08:45 98.3 F 58 L 16 134/63 98 09/25/20 07:00 81 18 140/83 98 09/25/20 06:30 50 L 16 117/65 98 09/25/20 06:00 56 L 16 117/67 98 09/25/20 04:41 53 L 17 126/77 97 09/25/20 03:58 98 F 68 16 119/80 97 Intake and Output 09/24/20 09/25/20 09/25/20 22:59 06:59 14:59 Intake Total 200 Balance 200 Intake: Oral 200 Other: Weight 104.326 kg 104.326 kg Results CBC & Chem 7: 09/25/20 16:19 09/25/20 04:38 Labs: Abnormal Lab Results - Last 24 Hours (Table) 09/25/20 09/25/20 09/25/20 Range/Units 04:38 04:38 04:38 WBC 1.4 L* (3.8-10.6) k/uL RBC 3.55 L (4.30-5.90) m/uL Hgb 12.5 L (13.0-17.5) gm/dL Hct 34.7 L (39.0-53.0) % MCH 35.1 H (25.0-35.0) pg RDW 17.3 H (11.5-15.5) % Plt Count 56 L (150-450) k/uL Neutrophils # (Manual) 0.41 L* (1.3-7.7) k/uL Lymphocytes # (Manual) 0.92 L (1.0-4.8) k/uL APTT 21.7 L (22.0-30.0) sec Sodium 136 L (137-145) mmol/L Glucose 155 H (74-99) mg/dL POC Glucose (mg/dL) (75-99) mg/dL Total Protein 5.8 L (6.3-8.2) g/dL Albumin 3.4 L (3.5-5.0) g/dL 09/25/20 Range/Units 09:02 WBC (3.8-10.6) k/uL RBC (4.30-5.90) m/uL Hgb (13.0-17.5) gm/dL Hct (39.0-53.0) % MCH (25.0-35.0) pg RDW (11.5-15.5) % Plt Count (150-450) k/uL Neutrophils # (Manual) (1.3-7.7) k/uL Lymphocytes # (Manual) (1.0-4.8) k/uL APTT (22.0-30.0) sec Sodium (137-145) mmol/L Glucose (74-99) mg/dL POC Glucose (mg/dL) 139 H (75-99) mg/dL Total Protein (6.3-8.2) g/dL Albumin (3.5-5.0) g/dL Thrombosis Risk Factor Assmnt - Choose All That Apply Any of the Below Risk Factors Present?: Yes Each Factor Represents 1 point: Medical pt on bed rest, Obesity (BMI >25) Other Risk Factors: Yes (afib history, Eliquis on hold for GIB) Each Risk Factor Represents 3 Points: Age 75 years or older Thrombosis Risk Factor Assessment Total Risk Factor Score: 5 Thrombosis Risk Factor Assessment Level: High Risk
[2020-09-26 00:12] LABS: Anisocytosis Slight; HCT 34.3 % (39.0-53.0); HGB 11.6 gm/dL (13.0-17.5); MCH 34.2 pg (25.0-35.0); MCHC 33.9 g/dL (31.0-37.0); MCV 100.8 fL (80.0-100.0); Macrocytosis Moderate; Mean Platelet Volume 9.2; Poikilocytosis Slight; RBC 3.41 m/uL (4.30-5.90); RDW 18.3 % (11.5-15.5); WBC 1.7 k/uL (3.8-10.6)
[2020-09-26 01:04] LABS: Eosinophils # (M) 0.03 k/uL (0-0.7)
[2020-09-26 01:05] LABS: Blast Cells # (M) 0.14 k/uL (0); Nucleated Red Blood Cells 0 /100 WBC (0-0); Total Cells Counted 100
[2020-09-26 01:11] LABS: Anisocytosis (M) Present; Ovalocytes Present; Platelet Count 55 k/uL (150-450); Poikilocytosis (M) Present
[2020-09-26] MEDS: BRIMONIDINE TARTRATE 0.2% DROPS 5 ML BTL BOTH EYES SCH (07:07)
[2020-09-26] MEDS: FUROSEMIDE 20 MG TAB PO SCH (07:07)
[2020-09-26] MEDS: SODIUM CHLORIDE 0.9% 1,000 ML IV SCH (07:08)
[2020-09-26] MEDS: TIMOLOL 0.5% OPHTH DROPS 5 ML BTL LEFT EYE SCH (07:08)
[2020-09-26] MEDS ORDERED: PANTOPRAZOLE 40 MG TABLET PO SCH (07:30)
[2020-09-26] MEDS ORDERED: MAGNESIUM CITRATE 296 ML BOTTLE PO ONE (09:00)
[2020-09-26 10:49] LABS: Band Neutrophils % 2 %; Monocytes # (M) 0.07 k/uL (0-1.0); Neutrophils % (M) 27 %
[2020-09-26] MEDS ORDERED: IV FLUID CONTINUATION 1,000 ML IV ONE (11:21)
[2020-09-26] MEDS ORDERED: PROPOFOL 10 MG/ML 20 ML VIAL IV ONE (11:22)
[2020-09-26 11:23] LABS: Reticulocyte % 2.1 % (0.5-2.0)
--- NOTE | 2020-09-26 11:52 | P.PCN ---
Date of Procedure: 09/26/20 Procedure(s) Performed: BRIEF HISTORY: Patient is a 89-year-old pleasant white male admitted to the hospital with rectal bleeding. He scheduled for colonoscopy to evaluate further. He does have history of chronic constipation. PROCEDURE PERFORMED: Colonoscopy with biopsy. PREOPERATIVE DIAGNOSIS: Rectal bleeding of 2 days' duration. IV sedation per Anesthesia. PROCEDURE: After informed consent was obtained, the patient, was brought into the endoscopy unit. IV sedation was administered by Anesthesia under continuous monitoring. Digital rectal examination was normal. Initially the Olympus CF-160 flexible video colonoscope was then inserted in the rectum, gradually advanced into the cecum without any difficulty. Careful examination was performed as the scope was gradually being withdrawn. Ileocecal valve was visualized and appeared normal. Prep was fair. The appendiceal orifice could not be visualized and despite multiple times I was not able to advance the scope all the way into the cecum. However part of the cecum was visualized and appeared normal. The. Mucosa of the cecum, ascending colon, transverse colon, descending colon, sigmoid colon,appeared normal. In the distal rectum there was mucosal erythema with superficial ulcerations consistent with stercoral ulcers biopsies were done from this area. The Retroflexion was performed in the rectum and no lesions were seen. The patient tolerated the procedure well. IMPRESSION: Diffuse erythema with superficial ulcerations in the distal rectum consistent with stercoral ulcers status post biopsy Rest of the colon appeared normal with no evidence of colorectal neoplasia RECOMMENDATIONS: Findings of this examination were discussed with the patient . He was advised to follow with the biopsy results. Avoid straining and constipation. He will be started on MiraLAX 1 scoop daily..
[2020-09-26 12:23] LABS: Partial Thromboplastin Time 19.7 sec (22.0-30.0)
--- NOTE | 2020-09-26 12:30 | P.CONS ---
History of Present Illness - Reason for Consult Consult date: 09/26/20 Pancytopenia Requesting physician: Giovanni Delgado - Chief Complaint Dark Stools and light-headed - History of Present Illness Mr. Ortega is a 89 year old male patient who presents with GI complaints. Concern of GI bleeding on admission, however during further work-up patient was found to have cytopenia's. WBC - 1.6. Hemoglobin 11.6, MCV - 100, Platelets 50K. PT/INR/PTT did not result prolonged. He has known history chronic a fib on eliquis (currently on hold). Review of Systems All systems: negative Constitutional: Reports as per HPI Past Medical History Past Medical History: Atrial Fibrillation, CVA/TIA, Diabetes Mellitus, Hypertension, Osteoarthritis (OA), Pneumonia, Sleep Apnea/CPAP/BIPAP Additional Past Medical History / Comment(s): see Dr Valladares H&P, constipation, pre cancer skin "spots", varicose veins History of Any Multi-Drug Resistant Organisms: None Reported Past Surgical History: Appendectomy, Cholecystectomy, Joint Replacement, Orthopedic Surgery, Pacemaker Additional Past Surgical History / Comment(s): jean-paul cataracts, rt shoulder surgery,jean-paul bunionectomy, heel spur left foot, Deviated septum, hemmrhoidectomy Past Anesthesia/Blood Transfusion Reactions: No Reported Reaction Type of Cardiac Device: Permanent Pacemaker Device Placement Date:: 2016, on demand pacer set to go off if HR goes less than 50. Past Psychological History: No Psychological Hx Reported Smoking Status: Former smoker Past Alcohol Use History: None Reported Additional Past Alcohol Use History / Comment(s): quit smoking 1967, smoked for 4-5 yrs ,2 PPD Past Drug Use History: None Reported - Past Family History Father Family Medical History: Cancer Mother Family Medical History: Cancer Sister(s) Family Medical History: Cancer Medications and Allergies Home Medications Medication Instructions Recorded Confirmed Type amLODIPine/ATORVASTATIN 1 tab PO HS 11/18/18 09/25/20 History [amLODIPine/ATORVASTATIN 10-20 MG] Apixaban [Eliquis] 2.5 mg PO BID 09/25/20 09/25/20 History Brimonidine Tartrate [Alphagan P 1 drop BOTH EYES BID 09/25/20 09/25/20 History 0.2% Ophth Soln] Furosemide [Lasix] 20 mg PO DAILY 09/25/20 09/25/20 History Latanoprost [Xalatan 0.005%] 1 drop LEFT EYE HS 09/25/20 09/25/20 History Timolol 0.5% Ophth Soln [Timoptic 1 drop LEFT EYE DAILY 09/25/20 09/25/20 History 0.5% Ophth Soln] Allergies Allergy/AdvReac Type Severity Reaction Status Date / Time Penicillins Allergy Severe Anaphylaxis Verified 09/25/20 09:25 Physical Exam Vitals: Vital Signs Temp Pulse Resp BP Pulse Ox 09/26/20 07:00 97.8 F 53 L 20 132/67 96 09/26/20 02:00 98.5 F 48 L 17 111/57 93 L 09/25/20 20:00 98.1 F 54 L 18 171/71 97 09/25/20 15:00 97.4 F L 50 L 18 114/64 97 09/25/20 14:00 16 09/25/20 13:01 110/61 Intake and Output 09/25/20 09/26/20 09/26/20 22:59 06:59 14:59 Intake Total 400 Output Total 100 Balance 300 Intake: Oral 400 Output: Urine 100 Other: Voiding Method Toilet Bedside Commode # Voids 1 2 # Bowel Movements 3 2 Results CBC & Chem 7: 09/25/20 23:23 09/25/20 04:38 Labs: Abnormal Lab Results - Last 24 Hours (Table) 09/25/20 09/25/20 09/25/20 Range/Units 11:29 16:19 23:23 WBC 1.5 L 1.5 L 1.7 L (3.8-10.6) k/uL RBC 3.38 L 3.29 L 3.41 L (4.30-5.90) m/uL Hgb 11.4 L 11.6 L 11.6 L (13.0-17.5) gm/dL Hct 34.3 L 32.7 L 34.3 L (39.0-53.0) % MCV 101.6 H 100.8 H (80.0-100.0) fL MCH 35.3 H (25.0-35.0) pg RDW 18.2 H 17.5 H 18.3 H (11.5-15.5) % Plt Count 54 L 52 L (150-450) k/uL Neutrophils # 0.5 L 0.4 L* (1.3-7.7) k/uL Neutrophils # (Manual) 0.41 L* 0.40 L* (1.3-7.7) k/uL Lymphocytes # 0.8 L 0.9 L (1.0-4.8) k/uL Lymphocytes # (Manual) 0.95 L (1.0-4.8) k/uL Assessment and Plan Plan: Assessment and Recommendations: Pancytopenia: - Considerations including acute onsets infectious/inflammation versus underlying bone marrow suppession - Will further work-up - Hold Anti-coagulation platelets less than 50K or obvious signs of bleeding - Transfuse PRBC hemoglobin less than 7, platelets less than 10K, or less than 50K if active bleeding - Ortiz cultures ordered - Await results - Await above evaluation and further recs to follow Physician Attest: I have completed the full history and physical and agree with above dictation, dictated as a scribe.
[2020-09-26 13:12] VITALS: PULSE 50
[2020-09-26 13:58] LABS: Appearance,Urine Clear (Clear); Bilirubin,Urine Negative (Negative); Blood,Urine Negative (Negative); Color,Urine Yellow; Glucose,Urine (UA) Negative (Negative); Ketones,Urine Negative (Negative); Leukocyte Esterase,Urine Negative (Negative); Nitrite,Urine Negative (Negative); PH, Urine 7.5 (5.0-8.0); Protein,Urine Negative (Negative); Specific Gravity,Urine 1.006 (1.001-1.035); Urobilinogen,Urine <2.0 mg/dL (<2.0)
[2020-09-26 14:42] VITALS: RESP 16; TEMP 97.5
[2020-09-26 16:26] VITALS: BP 133/63
[2020-09-26 16:42] LABS: Ferritin 658.4 ng/mL (22.0-322.0); Folate, Serum 22.7 ng/mL
[2020-09-26 16:44] LABS: Protein, Total 4.8 g/dL (6.2-8.2)
[2020-09-26 19:22] LABS: Lymphocytes % (A) 59 %
--- NOTE | 2020-09-26 23:23 | XR ---
EXAMINATION TYPE: XR chest 2V DATE OF EXAM: 09/26/2020 CLINICAL HISTORY: sob. TECHNIQUE: Frontal and lateral view of the chest. COMPARISON: 11/18/2018 chest radiograph FINDINGS: Redemonstrated elevation of the left hemidiaphragm. Left-sided single-chamber cardiac pace maker. The cardiac silhouette is again mildly enlarged. Pulmonary vasculature is normal. There is no focal air space opacity, pleural effusion, or pneumothorax seen. Degenerative changes of the cardioth oracic spine. There are multilevel diffuse bridging osteophytes. IMPRESSION: 1. Redemonstrated cardiomegaly. 2. No acute cardiopulmonary process. 3. Diffuse idiopathic skeletal hyperostosis (DISH).
[2020-09-27 00:14] LABS: % Iron Saturation 30.81 (15.00-50.00)
[2020-09-27] MEDS ORDERED: polyethylene glycoL 3350 17 GM POWD.PACK PO SCH (09:00)
[2020-09-27 13:26] LABS: Free Kappa Lt Chain Qnt, Serum 1.37 mg/dL (0.33-1.94)
[2020-09-27 14:14] LABS: INR 1.1 (<1.2); Prothrombin Time 11.3 sec (9.0-12.0)
[2020-09-27 14:57] LABS: Immunoglobulin M 21.9 mg/dL (40.0-280.0)
--- NOTE | 2020-09-27 17:16 | P.DS ---
Providers Date of admission: 09/26/20 14:18 Expected date of discharge: 09/26/20 Attending physician: Giovanni Delgado Consults: 09/25/20 07:00 Consult Physician Routine Consulting Provider: Gisselle Harrison Consult Reason/Comments: GI bleeding Do you want consulting provider notified?: Yes 09/25/20 23:30 Consult Physician Routine Consulting Provider: Orville Nicolas Consult Reason/Comments: Pancytopenia Do you want consulting provider notified?: Yes Primary care physician: [facility] Course: Chief Complaint: Bright red blood per rectum History of presenting complaint: This is a very pleasant 89-year-old patient of Dr. Gomez. Chronic stable medical conditions include atrial fibrillation, diabetes, hypertension, osteoarthritis, varicose veins, permanent pacemaker. 2019 patient underwent a colonoscopy. Due to poor bowel preparation full visualization was not possible, patient now presents with bright red blood per rectum. Patient has got significant constipation. Normally has anywhere from 2-3 bowel movements a week. This time he was constipated for about a week. Had to bear himself down with hard stool. Notice bright red blood per rectum. When he is wiping himself. Denies any abdominal pain. No loss of appetite or weight. Appetite has been good otherwise. GI consulted. Today: Patient underwent colonoscopy with Dr. Fabian Harrison. Found to have diffuse erythema with superficial ulcerations in the distal rectum consistent with stercoral ulcers. Biopsy done. Just of the colon appeared normal. MiraLAX and Anusol HC was added. Discussed with the patient. Questions answered. Discussed with GI patient cleared to be discharged. Patient also seen by Dr. Nicolas from hematology. 4 pancytopenia. Peripheral blood film that shows some occasional loss. Patient follow-up with hematology as outpatient.. Discussion and discharge planning more than 35 minutes Consultation: Dr. Fabian Harrison from GI Past medical history: Atrial fibrillation, remote stroke, diabetes, hypertension, osteoarthritis, sleep apnea in the past , not anymore, varicose veins Social history: Does not smoke or drink alcohol. Retired. Lives alone. Uses a cane Family history: Cancer Physical examination: VITAL SIGNS: 97.5, 50, 16, 146/68, 97% room air GENERAL: Laying in bed, comfortable EYES: Pupils equal. Conjunctiva normal. HEENT: External appearance of nose and ears normal, oral cavity grossly normal. NECK: JVD not raised; masses not palpable. HEART: First and second heart sounds are normal; no edema. LUNGS: Respiratory rate normal; clear to auscultation. ABDOMEN: Soft, no tenderness, no guarding or rigidity liver spleen not palpable, no masses palpable. PSYCH: Alert and oriented x3; mood and affect normal. Investigations, reviewed in the clinical context: PT 11.3 PTT 19.7. Fibrinogen 06/13/1951 percent saturation 30.8 ferritin 658 vitamin B12 184 folate 22 IgG 631 IgA 106 IgM 21.9. Rheumatoid factor XCVIII and a negative free Cuppari lambda chain 1.37 free lambda LC 1.53 EGD: Results above WBC 1.5 hemoglobin 11.6 platelets 52 potassium 4.1 creatinine 0.85 Coronavirus [PCR]-not detected EKG tracing personally reviewed by me-atrial fibrillation rate controlled Assessment and plan: -Acute bright red bleeding per rectum and the patient's was cut chronic constipation. On this occasion has not had a bowel wound for 7 days. Had a hard stool. This could be hemorrhoidal bleeding. Last attempt at colonoscopy in [address] Gamble was unsuccessful. Due to poor bowel preparation. GI consulted. -Pancytopenia, could be from marrow suppression or early myelofibrosis Patient to follow-up with hematology -Persistent atrial fibrillation, rate controlled Telemetry. Chronically on eliquis. Held for now -Permanent pacemaker -Hypertension Continue with antihypertensive. Keep a close eye on the blood pressure -Primary osteoarthritis Pain control, when necessary Disposition: Home Plan - Discharge Summary New Discharge Prescriptions: New Hydrocortisone [Anusol-Hc] 1 applic RECTAL BID #1 gm polyethylene glycoL 3350 [Miralax] 17 gm PO DAILY #30 powd.pack Continue amLODIPine/ATORVASTATIN [amLODIPine/ATORVASTATIN 10-20 MG] 1 tab PO HS Timolol 0.5% Ophth Soln [Timoptic 0.5% Ophth Soln] 1 drop LEFT EYE DAILY Brimonidine Tartrate [Alphagan P 0.2% Ophth Soln] 1 drop BOTH EYES BID Latanoprost [Xalatan 0.005%] 1 drop LEFT EYE HS Furosemide [Lasix] 20 mg PO DAILY Apixaban [Eliquis] 2.5 mg PO BID Discharge Medication List amLODIPine/ATORVASTATIN [amLODIPine/ATORVASTATIN 10-20 MG] 1 tab PO HS 11/18/18 [History] Apixaban [Eliquis] 2.5 mg PO BID 09/25/20 [History] Brimonidine Tartrate [Alphagan P 0.2% Ophth Soln] 1 drop BOTH EYES BID 09/25/20 [History] Furosemide [Lasix] 20 mg PO DAILY 09/25/20 [History] Latanoprost [Xalatan 0.005%] 1 drop LEFT EYE HS 09/25/20 [History] Timolol 0.5% Ophth Soln [Timoptic 0.5% Ophth Soln] 1 drop LEFT EYE DAILY 09/25/20 [History] Hydrocortisone [Anusol-Hc] 1 applic RECTAL BID #1 gm 09/26/20 [Rx] polyethylene glycoL 3350 [Miralax] 17 gm PO DAILY #30 powd.pack 09/26/20 [Rx] Follow up Appointment(s)/Referral(s): Orville Nicolas MD [STAFF PHYSICIAN] - 1 Week Ervin Gomez MD [Primary Care Provider] - 1-2 days Gisselle Harrison MD [STAFF PHYSICIAN] - 3 Weeks Patient Instructions/Handouts: Gastrointestinal Bleeding (ED) Discharge Disposition: HOME SELF-CARE
[2020-09-28 07:47] LABS: Methylmalonic Acid 0.28 umol/L (<0.40)
[2020-09-28 12:54] LABS: Albumin 2.83 g/dL (3.80-4.90); Gamma Globulin 0.54 g/dL (0.70-1.50)
== END 2020-09-26 18:29 | disposition home or self-care (01) | DRG 378 ==
LOC: EC 03:56 → 6NMEDSUR 06:59 → OBSVTOIN 09-26 14:18
PROVIDERS: ADMIT Hospitalist; ATTEND Hospitalist
PROC: 0DBP8ZX Excision of Rectum, Via Natural or Artificial Opening Endoscopic, Diagnostic (ICD-10-PCS; principal; 2020-09-26 07:45)
DX: K62.5 Hemorrhage of anus and rectum (principal); K62.6 Ulcer of anus and rectum; D61.818 Other pancytopenia; I48.19 Other persistent atrial fibrillation; K64.9 Unspecified hemorrhoids; E11.9 Type 2 diabetes mellitus without complications; E78.5 Hyperlipidemia, unspecified; I10 Essential (primary) hypertension; I83.90 Asymptomatic varicose veins of unspecified lower extremity; K59.09 Other constipation; M19.91 Primary osteoarthritis, unspecified site; Z79.01 Long term (current) use of anticoagulants; Z79.899 Other long term (current) drug therapy; Z85.828 Personal history of other malignant neoplasm of skin; Z86.73 Personal history of transient ischemic attack (TIA), and cerebral infarction without residual deficits; Z87.891 Personal history of nicotine dependence; Z60.2 Problems related to living alone; Z20.822 Contact with and (suspected) exposure to COVID-19; Z98.42 Cataract extraction status, left eye; Z98.41 Cataract extraction status, right eye; Z88.0 Allergy status to penicillin; Z87.01 Personal history of pneumonia (recurrent); G47.30 Sleep apnea, unspecified; Z80.9 Family history of malignant neoplasm, unspecified; Z99.89 Dependence on other enabling machines and devices
CPT/HCPCS: 36415; 45380; 71046; 80053; 81003; 82272; 82607; 82728; 82746; 82784; 83540; 83550; 83605; 83625; 83883; 83921; 84165; 84484; 85025; 85045; 85384; 85610; 85730; 86038; 86334; 86431; 86850; 86900; 86901; 87040; 87635; 88305; 93005; 99285

== ENCOUNTER 2020-11-15 06:10 | Day surgery (SDC) | payer MEDICARE ==
[2020-11-14 11:02] VITALS: BMI 31.3
[~2020-11-15 06:10] MED LIST: LACTATED RINGERS 1,000 ML IV SCH; LIDOCAINE 1% (10MG/ML) FOR IV START INTRADERMA PRN
[2020-11-15 07:02] VITALS: RESP 16; TEMP 97.3
[2020-11-15] MEDS ORDERED: KETAMINE 10 MG/ML 20 ML VIAL ONE (07:13)
[2020-11-15] MEDS ORDERED: LIDOCAINE 1% INJ 10MG/ML (20 ML MDV) ONE (07:13)
[2020-11-15] MEDS ORDERED: PROPOFOL 10 MG/ML 20 ML VIAL IV ONE (07:13)
[2020-11-15 07:55] VITALS: BP 110/67; PULSE 51
--- NOTE | 2020-11-15 08:01 | PCN ---
PROCEDURE NOTE DATE OF PROCEDURE: 11/15/2020 PREOPERATIVE DIAGNOSIS: Pancytopenia. POSTOPERATIVE DIAGNOSIS: Pancytopenia. ANESTHESIA: Local with IV systemic sedation. DETAILS: Utilizing sterile technique, the skin overlying the right iliac crest was prepared with Betadine and alcohol. After adequate sterile draping, local anesthesia and systemic sedation, a size 11, 4 inch Jamshidi needle was utilized to access the periosteum with ease. A total of 10 mL of aspiration and 5 cm bone core biopsies were obtained. The patient tolerated the procedure well. There was no immediate procedure related complications. TOTAL BLOOD LOSS: Blood loss less than 1 mL. RESULTS: Pending. MMODL / IJN: [id number] /
[2020-11-15 08:41] LABS: Anisocytosis Moderate; HCT 25.2 % (39.0-53.0); MCH 34.6 pg (25.0-35.0); MCHC 32.8 g/dL (31.0-37.0); MCV 105.4 fL (80.0-100.0); Macrocytosis Marked; Poikilocytosis Slight; RBC 2.39 m/uL (4.30-5.90); Reticulocyte % 2.1 % (0.5-2.0)
[2020-11-15 09:19] LABS: WBC 1.3 k/uL (3.8-10.6)
[2020-11-15 09:20] LABS: HGB 8.3 gm/dL (13.0-17.5)
[2020-11-15 09:21] LABS: Platelet Count 55 k/uL (150-450)
[2020-11-15 09:41] LABS: Neutrophils % (M) 17 %
[2020-11-15 09:42] LABS: Blast Cells # (M) 0.04 k/uL (0); Eosinophils # (M) 0.01 k/uL (0-0.7); Lymphocytes # (M) 1.03 k/uL (1.0-4.8); Neutrophils # (M) 0.22 k/uL (1.3-7.7); Nucleated Red Blood Cells 0 /100 WBC (0-0); Total Cells Counted 200
== END 2020-11-15 08:27 | disposition home or self-care (01) ==
LOC: OR 06:10
PROVIDERS: ATTEND Internal Medicine Hematology & Oncology
DX: C92.00 Acute myeloblastic leukemia, not having achieved remission (principal); I10 Essential (primary) hypertension; M19.90 Unspecified osteoarthritis, unspecified site; E78.5 Hyperlipidemia, unspecified; I48.91 Unspecified atrial fibrillation; G47.33 Obstructive sleep apnea (adult) (pediatric); E11.9 Type 2 diabetes mellitus without complications; Z86.73 Personal history of transient ischemic attack (TIA), and cerebral infarction without residual deficits; Z90.89 Acquired absence of other organs; Z96.651 Presence of right artificial knee joint; Z96.611 Presence of right artificial shoulder joint; Z95.0 Presence of cardiac pacemaker; Z98.42 Cataract extraction status, left eye; Z98.41 Cataract extraction status, right eye; Z80.1 Family history of malignant neoplasm of trachea, bronchus and lung; Z80.0 Family history of malignant neoplasm of digestive organs; Z80.8 Family history of malignant neoplasm of other organs or systems; Z86.19 Personal history of other infectious and parasitic diseases; Z87.891 Personal history of nicotine dependence; Z79.01 Long term (current) use of anticoagulants; Z79.899 Other long term (current) drug therapy; Z88.0 Allergy status to penicillin
CPT/HCPCS: 85025; 85045; 38222; J2001; J2704